=== PATIENT | female | born 1935 | race Caucasian/White ===

== ENCOUNTER 2017-07-18 08:14 | Emergency (ER) | payer MEDICARE ==
[2017-07-18] MEDS ORDERED: SODIUM CHLORIDE 0.9% 1,000 ML IV STA (08:29)
--- NOTE | 2017-07-18 08:32 | ED ---
General Adult HPI - General Chief complaint: Weakness Stated complaint: WEAKNESS Time Seen by Provider: 07/18/17 08:21 Source: patient, family, RN notes reviewed Mode of arrival: wheelchair Limitations: no limitations - History of Present Illness Initial comments: Patient is a pleasant 82-year-old female presenting to the emergency department with fatigue and general weakness. Symptoms started a couple of days ago. Patient feels somewhat weak all over. Patient is still able to ambulate and perform her activities of daily living. No isolated area of weakness. No confusion. No speech problems. No fever. No cough. No pain. No dysuria. - Related Data Home Medications Medication Instructions Recorded Confirmed Benazepril [Lotensin] 10 mg PO DAILY 07/18/17 07/18/17 Calcium Carbonate [Tums] 500 mg PO QID PRN 07/18/17 07/18/17 Levothyroxine Sodium [Synthroid] 75 mcg PO [id number] 07/18/17 07/18/17 Levothyroxine Sodium [Synthroid] 112.5 mcg PO MOTH 07/18/17 07/18/17 Lovastatin [Mevacor] 20 mg PO HS 07/18/17 07/18/17 Mag Hydrox/Al Hydrox/Simeth 30 ml PO QID PRN 07/18/17 07/18/17 [Maalox] Multivitamins, Thera [Multivitamin 1 tab PO DAILY 07/18/17 07/18/17 (formulary)] Oxybutynin Chloride 5 mg PO TID 07/18/17 07/18/17 Tiotropium 18 Mcg/Puff [Spiriva] 1 cap INHALATION RT-DAILY 07/18/17 07/18/17 Previous Rx's Medication Instructions Recorded Sulfamethox-Tmp 800-160Mg [Bactrim 1 each PO Q12HR #20 tab 07/18/17 DS 800-160 mg] Allergies Allergy/AdvReac Type Severity Reaction Status Date / Time No Known Allergies Allergy Verified 07/18/17 09:33 Review of Systems ROS Statement: Those systems with pertinent positive or pertinent negative responses have been documented in the HPI. ROS Other: All systems not noted in ROS Statement are negative. Constitutional: Denies: fever Eyes: Denies: eye pain ENT: Denies: ear pain Respiratory: Denies: cough, dyspnea Cardiovascular: Denies: chest pain Endocrine: Reports: fatigue Gastrointestinal: Denies: abdominal pain Genitourinary: Reports: frequency (chronic and unchanged). Denies: dysuria Musculoskeletal: Denies: back pain Skin: Denies: rash Neurological: Reports: weakness (generalized). Denies: headache, paresthesias, confusion, abnormal gait Past Medical History Past Medical History: Hyperlipidemia, Hypertension, Thyroid Disorder History of Any Multi-Drug Resistant Organisms: None Reported Past Surgical History: Adenoidectomy, Appendectomy, Cholecystectomy, Hysterectomy, Tonsillectomy Additional Past Surgical History / Comment(s): carpel tunnel hemmorroidectomy Past Psychological History: No Psychological Hx Reported Smoking Status: Former smoker Past Alcohol Use History: None Reported Past Drug Use History: None Reported General Exam Limitations: no limitations General appearance: alert, in no apparent distress Head exam: Present: atraumatic Eye exam: Present: normal appearance, PERRL, EOMI. Absent: nystagmus ENT exam: Present: normal oropharynx Neck exam: Present: normal inspection Respiratory exam: Present: normal lung sounds bilaterally Cardiovascular Exam: Present: regular rate, normal rhythm GI/Abdominal exam: Present: soft. Absent: tenderness Extremities exam: Present: normal inspection Neurological exam: Present: alert, oriented X3, CN II-XII intact. Absent: motor sensory deficit Expanded Patient oriented to: Present: person, place, time Speech: Present: fluid speech Cranial nerves: EOM's Intact: Normal, Facial Sensation: Normal Sensory exam: Upper Extremity Light Touch: Normal, Lower Extremity Light Touch: Normal Motor strength exam: RUE: 5, LUE: 5, RLE: 5, LLE: 5 Eye Response: (4) open spontaneously Motor Response: (6) obeys commands Verbal Response: (5) oriented Psychiatric exam: Present: normal affect, normal mood Skin exam: Present: normal color Course Vital Signs 07/18/17 07/18/17 07/18/17 08:24 08:47 09:19 Temperature 98.0 F Pulse Rate 101 H 91 96 Respiratory 18 18 18 Rate Blood Pressure 163/119 185/102 183/92 O2 Sat by Pulse 96 94 L 96 Oximetry EKG Findings - EKG Comments: EKG Findings:: normal sinus rhythm 94. HI 148. QRS 140. QTc 400. QTc 500. Lef Septal Q waves. nonspecific ST-T. Medical Decision Making - Medical Decision Making Patient reexamined and resting comfortably in bed. Patient is comfortable with discharge. Patient and family updated on results and need for follow-up. - Lab Data Result diagrams: 07/18/17 08:30 07/18/17 08:30 Lab Results 07/18/17 07/18/17 07/18/17 Range/Units 08:30 08:30 08:30 WBC 4.1 (3.8-10.6) k/uL RBC 4.38 (3.80-5.40) m/uL Hgb 13.4 (11.4-16.0) gm/dL Hct 41.8 (34.0-46.0) % MCV 95.5 (80.0-100.0) fL MCH 30.6 (25.0-35.0) pg MCHC 32.0 (31.0-37.0) g/dL RDW 14.2 (11.5-15.5) % Plt Count 139 L (150-450) k/uL Neutrophils % 55 % Lymphocytes % 28 % Monocytes % 10 % Eosinophils % 3 % Basophils % 1 % Neutrophils # 2.3 (1.3-7.7) k/uL Lymphocytes # 1.2 (1.0-4.8) k/uL Monocytes # 0.4 (0-1.0) k/uL Eosinophils # 0.1 (0-0.7) k/uL Basophils # 0.0 (0-0.2) k/uL PT (9.0-12.0) sec INR (<1.2) APTT (22.0-30.0) sec Sodium 131 L (137-145) mmol/L Potassium 4.2 (3.5-5.1) mmol/L Chloride 98 (98-107) mmol/L Carbon Dioxide 23 (22-30) mmol/L Anion Gap 10 mmol/L BUN 9 (7-17) mg/dL Creatinine 0.70 (0.52-1.04) mg/dL Est GFR (MDRD) Af Amer >60 (>60 ml/min/1.73 sqM) Est GFR (MDRD) Non-Af >60 (>60 ml/min/1.73 sqM) Glucose 116 H (74-99) mg/dL Calcium 9.4 (8.4-10.2) mg/dL Phosphorus 3.5 (2.5-4.5) mg/dL Magnesium 1.8 (1.6-2.3) mg/dL Total Bilirubin 0.4 (0.2-1.3) mg/dL AST 30 (14-36) U/L ALT 35 (9-52) U/L Alkaline Phosphatase 76 (38-126) U/L Total Creatine Kinase 38 (30-135) U/L CK-MB (CK-2) 1.8 (0.0-2.4) ng/mL CK-MB (CK-2) Rel Index 4.7 Troponin I 0.014 (0.000-0.034) ng/mL Total Protein 7.3 (6.3-8.2) g/dL Albumin 4.0 (3.5-5.0) g/dL TSH 7.410 H (0.465-4.680) mIU/L Free T4 1.30 (0.78-2.19) ng/dL Free T3 pg/mL 2.8 (2.8-5.3) pg/ml Urine Color Urine Appearance (Clear) Urine pH (5.0-8.0) Ur Specific [place] (1.001-1.035) Urine Protein (Negative) Urine Glucose (UA) (Negative) Urine Ketones (Negative) Urine Blood (Negative) Urine Nitrite (Negative) Urine Bilirubin (Negative) Urine Urobilinogen (<2.0) mg/dL Ur Leukocyte Esterase (Negative) Urine RBC (0-5) /hpf Urine WBC (0-5) /hpf Urine Bacteria (None) /hpf 07/18/17 07/18/17 Range/Units 08:30 09:15 WBC (3.8-10.6) k/uL RBC (3.80-5.40) m/uL Hgb (11.4-16.0) gm/dL Hct (34.0-46.0) % MCV (80.0-100.0) fL MCH (25.0-35.0) pg MCHC (31.0-37.0) g/dL RDW (11.5-15.5) % Plt Count (150-450) k/uL Neutrophils % % Lymphocytes % % Monocytes % % Eosinophils % % Basophils % % Neutrophils # (1.3-7.7) k/uL Lymphocytes # (1.0-4.8) k/uL Monocytes # (0-1.0) k/uL Eosinophils # (0-0.7) k/uL Basophils # (0-0.2) k/uL PT 10.5 (9.0-12.0) sec INR 1.0 (<1.2) APTT 26.5 (22.0-30.0) sec Sodium (137-145) mmol/L Potassium (3.5-5.1) mmol/L Chloride (98-107) mmol/L Carbon Dioxide (22-30) mmol/L Anion Gap mmol/L BUN (7-17) mg/dL Creatinine (0.52-1.04) mg/dL Est GFR (MDRD) Af Amer (>60 ml/min/1.73 sqM) Est GFR (MDRD) Non-Af (>60 ml/min/1.73 sqM) Glucose (74-99) mg/dL Calcium (8.4-10.2) mg/dL Phosphorus (2.5-4.5) mg/dL Magnesium (1.6-2.3) mg/dL Total Bilirubin (0.2-1.3) mg/dL AST (14-36) U/L ALT (9-52) U/L Alkaline Phosphatase (38-126) U/L Total Creatine Kinase (30-135) U/L CK-MB (CK-2) (0.0-2.4) ng/mL CK-MB (CK-2) Rel Index Troponin I (0.000-0.034) ng/mL Total Protein (6.3-8.2) g/dL Albumin (3.5-5.0) g/dL TSH (0.465-4.680) mIU/L Free T4 (0.78-2.19) ng/dL Free T3 pg/mL (2.8-5.3) pg/ml Urine Color Colorless Urine Appearance Clear (Clear) Urine pH 7.5 (5.0-8.0) Ur Specific [place] 1.002 (1.001-1.035) Urine Protein Negative (Negative) Urine Glucose (UA) Negative (Negative) Urine Ketones Negative (Negative) Urine Blood Negative (Negative) Urine Nitrite Positive H (Negative) Urine Bilirubin Negative (Negative) Urine Urobilinogen <2.0 (<2.0) mg/dL Ur Leukocyte Esterase Large H (Negative) Urine RBC 1 (0-5) /hpf Urine WBC 29 H (0-5) /hpf Urine Bacteria Rare H (None) /hpf - Radiology Data Radiology results: report reviewed (Computed tomography scan of the brain reveals no acute intercranial abnormality.), image reviewed (Chest x-ray shows mild cardiomegaly, COPD.) Disposition Clinical Impression: Urinary tract infection Disposition: HOME SELF-CARE Condition: Stable Instructions: Urinary Tract Infection in Women (ED) Additional Instructions: Please follow-up with your primary care physician in the beginning of the week. Return for increased weakness, change in mental status, fevers, worsening symptoms or other concerns. Prescriptions: Sulfamethox-Tmp 800-160Mg [Bactrim DS 800-160 mg] 1 each PO Q12HR #20 tab Referrals: Jeremy Vidal MD [Primary Care Provider] - 1-2 days Time of Disposition: 10:46
[2017-07-18 08:56] LABS: Partial Thromboplastin Time 26.5 sec (22.0-30.0); Prothrombin Time 10.5 sec (9.0-12.0)
[2017-07-18 08:58] LABS: ALT 35 U/L (9-52); AST 30 U/L (14-36); Alkaline Phosphatase 76 U/L (38-126); Anion Gap 10 mmol/L; Blood Urea Nitrogen 9 mg/dL (7-17); Calcium 9.4 mg/dL (8.4-10.2); Carbon Dioxide 23 mmol/L (22-30); Chloride 98 mmol/L (98-107); Glucose 116 mg/dL (74-99); Magnesium 1.8 mg/dL (1.6-2.3); Non-African American GFR(MDRD) >60 (>60 ml/min/1.73 sqM); Phosphorous 3.5 mg/dL (2.5-4.5); Potassium 4.2 mmol/L (3.5-5.1); Sodium 131 mmol/L (137-145); Total Bilirubin 0.4 mg/dL (0.2-1.3); Total Protein 7.3 g/dL (6.3-8.2)
[2017-07-18 09:06] LABS: Basophils % (A) 1 %; CH 31.5; CHCM 33.2; Eosinophils # (A) 0.1 k/uL (0-0.7); Eosinophils % (A) 3 %; HCT 41.8 % (34.0-46.0); HDW 2.46; HGB 13.4 gm/dL (11.4-16.0); Luc # (Auto) 0.13; Luc % (Auto) 3; Lymphocytes # (A) 1.2 k/uL (1.0-4.8); Lymphocytes % (A) 28 %; MCH 30.6 pg (25.0-35.0); MCV 95.5 fL (80.0-100.0); Mean Platelet Volume 8.2; Monocytes # (A) 0.4 k/uL (0-1.0); Monocytes % (A) 10 %; Neutrophils # (A) 2.3 k/uL (1.3-7.7); Neutrophils % (A) 55 %; RBC 4.38 m/uL (3.80-5.40); RDW 14.2 % (11.5-15.5); WBC 4.1 k/uL (3.8-10.6); WBC (Perox) 3.83
--- NOTE | 2017-07-18 09:07 | XR ---
EXAMINATION TYPE: XR chest 2V DATE OF EXAM: 07/18/2017 HISTORY: Weakness. REFERENCE: 3 dated 08/23/2012. FINDINGS: The lungs are overinflated. The heart is mildly enlarged. The lungs are clear. Pleural spac es are clear. IMPRESSION: 1. COPD. 2. MILD CARDIOMEGALY.
[2017-07-18 09:19] LABS: Creatine Kinase MB 1.8 ng/mL (0.0-2.4); Troponin I 0.014 ng/mL (0.000-0.034)
[2017-07-18 09:26] LABS: Appearance,Urine Clear (Clear); Bacteria,Urine Rare /hpf; Bilirubin,Urine Negative (Negative); Glucose,Urine (UA) Negative (Negative); Ketones,Urine Negative (Negative); Leukocyte Esterase,Urine Large (Negative); Nitrite,Urine Positive (Negative); PH, Urine 7.5 (5.0-8.0); Particle Count 9162; Protein,Urine Negative (Negative); RBC,Urine 1 /hpf (0-5); Specific Gravity,Urine 1.002 (1.001-1.035); UA Billing (MACRO vs. MICRO) MICRO; Urobilinogen,Urine <2.0 mg/dL (<2.0); WBC,Urine 29 /hpf (0-5)
--- NOTE | 2017-07-18 10:09 | CT ---
EXAMINATION TYPE: CT brain wo con DATE OF EXAM: 07/18/2017 COMPARISON: NONE HISTORY: Dizziness CT DLP: 1054.2 mGycm Automated exposure control for dose reduction was used. FINDINGS: There are generalized changes of sulcal prominence and ventriculomegaly, compatible with mild atrophy . There is diffuse periventricular white matter lucency, compatible with chronic white matter ischemi c change. There is no acute focal lesion, mass effect or midline shift identified. I do not see evide nce of intracranial blood. There is some mucosal thickening involving the left sphenoid sinus. The mastoid air cells are clear. Limited views through the middle and inner ear structures demonstrate no definite abnormality. IMPRESSION: 1. NO ACUTE INTRACRANIAL ABNORMALITY. 2. MILD ATROPHIC CHANGE. 3. CHRONIC WHITE MATTER ISCHEMIC CHANGE. 4. 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
[2017-07-18] MEDS ORDERED: LISINOPRIL 10 MG TAB PO STA (10:43)
[2017-07-18] MEDS ORDERED: SULFAMETHOX-TMP 800-160MG 1 EACH TAB PO STA (10:44)
[2017-07-18 11:05] VITALS: BP 152/91; PULSE 90; RESP 16; TEMP 97.6
== END 2017-07-18 11:28 | disposition home or self-care (01) ==
LOC: EC 08:14
DX: N39.0 Urinary tract infection, site not specified (principal); R53.1 Weakness; R53.83 Other fatigue; E78.5 Hyperlipidemia, unspecified; I10 Essential (primary) hypertension; E07.9 Disorder of thyroid, unspecified; Z87.891 Personal history of nicotine dependence; Z79.899 Other long term (current) drug therapy; Z53.20 Procedure and treatment not carried out because of patient's decision for unspecified reasons
CPT/HCPCS: 36415; 70450; 71020; 80053; 81001; 82550; 82553; 83735; 84100; 84439; 84443; 84481; 84484; 85025; 85610; 85730; 87086; 93005; 99285

== ENCOUNTER → 2019-04-24 | Outpatient (CLI) | payer MEDICARE ==
--- NOTE | 2019-04-24 15:39 | US ---
EXAMINATION TYPE: US carotid duplex BILAT DATE OF EXAM: 04/24/2019 COMPARISON: NONE CLINICAL HISTORY: I65.29 Carotid Stenosis. Stenosis EXAM MEASUREMENTS: RIGHT: Peak Systolic Velocity (PSV) cm/sec ----- Right CCA: 50.7 ----- Right ICA: 122.8 ----- Right ECA: 72.2 ICA/CCA ratio: 2.4 RIGHT: End Diastole cm/sec ----- Right CCA: 10.4 ----- Right ICA: 34.4 ----- Right ECA: 0.0 LEFT: Peak Systolic Velocity (PSV) cm/sec ----- Left CCA: 100.4 ----- Left ICA: 124.0 ----- Left ECA: 122.2 ICA/CCA ratio: 1.2 LEFT: End Diastole cm/sec ----- Left CCA: 13.7 ----- Left ICA: 19.2 ----- Left ECA: 0.0 VERTEBRALS (direction of flow): Right Vertebral: Antegrade Left Vertebral: Antegrade Rhythm: Normal IMPRESSION: Bilateral intimal thickening, plaque bilateral bulb, torturous left ICA, right ICA/CCA ra toro 2.4 Criteria for Assigning % of Stenosis / Diameter reduction (Estimation based on the indirect measurements of the internal carotid artery velocities (ICA PSV). 1. Normal (no stenosis)=ICA PSV < 125 cm/s: ratio < 2.0: ICA EDV<40 cm/s. 2. Less than 50% stenosis=ICA PSV < 125 cm/s: ratio < 2.0: ICA EDV<40 cm/s. 3. 50 to 69% stenosis=ICA PSV of 125 to 230 cm/s: ration 2.0 ? 4.0: ICA EDV 40-100 cm/s. 4. Greater than 70% stenosis to near occlusion= ICA PSV > 230 cm/s: ratio > 4.0: ICA EDV > 100 cm/s. 5. Near occlusion= ICA PSV velocities may be low or undetectable: variable ratio and ICA EDV. 6. Total occlusion=unable to detect flow.
== END | disposition home or self-care (01) ==
LOC: RADUSWWP 14:53
PROVIDERS: ATTEND Internal Medicine
DX: I65.23 Occlusion and stenosis of bilateral carotid arteries (principal)
CPT/HCPCS: 93880

== ENCOUNTER → 2020-07-08 | Outpatient (CLI) | payer MEDICARE ==
[~2020-07-08] MED LIST: DOBUTamine DRIP for NUC MED 500 MG in DEXTROSE/WATER 1 250ML.BAG IV ONE
--- NOTE | 2020-07-08 10:32 | US ---
EXAMINATION TYPE: US carotid duplex BILAT DATE OF EXAM: 07/08/2020 COMPARISON: 04/24/2019 CLINICAL HISTORY: I65.2 occlusion and stenosis carotid artery. EXAM MEASUREMENTS: RIGHT: Peak Systolic Velocity (PSV) cm/sec ----- Right CCA: 93.8 ----- Right ICA: 101. ----- Right ECA: 90.4 ICA/CCA ratio: 1.08 RIGHT: End Diastole cm/sec ----- Right CCA: 14.0 ----- Right ICA: 37.4 ----- Right ECA: 4.1 LEFT: Peak Systolic Velocity (PSV) cm/sec ----- Left CCA: 114. ----- Left ICA: 189. ----- Left ECA: 182. ICA/CCA ratio: 1.65 LEFT: End Diastole cm/sec ----- Left CCA: 13.7 ----- Left ICA: 48.0 ----- Left ECA: 8.2 VERTEBRALS (direction of flow): Right Vertebral: Antegrade Left Vertebral: Antegrade Rhythm: Normal Moderate atherosclerotic changes with mild velocity increase on left. IMPRESSION: 1. Moderate atherosclerotic disease with no significant hemodynamic stenosis as visualized. Criteria for Assigning % of Stenosis / Diameter reduction (Estimation based on the indirect measurements of the internal carotid artery velocities (ICA PSV). 1. Normal (no stenosis)=ICA PSV < 125 cm/s: ratio < 2.0: ICA EDV<40 cm/s. 2. Less than 50% stenosis=ICA PSV < 125 cm/s: ratio < 2.0: ICA EDV<40 cm/s. 3. 50 to 69% stenosis=ICA PSV of 125 to 230 cm/s: ration 2.0 ? 4.0: ICA EDV 40-100 cm/s. 4. Greater than 70% stenosis to near occlusion= ICA PSV > 230 cm/s: ratio > 4.0: ICA EDV > 100 cm/s. 5. Near occlusion= ICA PSV velocities may be low or undetectable: variable ratio and ICA EDV. 6. Total occlusion=unable to detect flow.
--- NOTE | 2020-07-08 12:17 | ECHOF ---
Referral Reason:R06.02 SOB MEASUREMENTS -------- HEIGHT: 167.6 cm WEIGHT: 64.9 kg BP: RVIDd: 3.2 cm (< 3.3) IVSd: 1.3 cm (0.6 - 1.1) LVIDd: 3.8 cm (3.9 - 5.3) LVPWd: 1.4 cm (0.6 - 1.1) IVSs: 1.2 cm LVIDs: 3.5 cm LVPWs: 2.0 cm LAESV Index (A-L): 26.06 ml/m Ao Diam: 3.0 cm (2.0 - 3.7) AV Cusp: 1.3 cm (1.5 - 2.6) MV E Audie: 0.45 m/s MV DecT: 154 ms MV A Audie: 1.01 m/s MV E/A Ratio: 0.45 AR PHT: 483 ms RAP: 5.00 mmHg RVSP: 17.24 mmHg FINDINGS -------- This was a technically adequate study. The left ventricular size is normal. There is mild concentric left ventricular hypertrophy. There is severe global hypokinesis of LV . Overall left ventricular systolic function is severely impair ed with, an EF < 20%. Mitral Doppler inflow pattern suggests diastolic filling abnormality {E/E'}. The right ventricle is normal in size. Normal LA size by volume 22+/-6 ml/m2. The right atrial size is normal. Interatrial and interventricular septum intact. The aortic valve is trileaflet and appears structurally normal. There is mild aortic valve sclerosi s. There is moderate aortic regurgitation. There is no evidence of aortic stenosis. An echodens ity was attached to the AV, vegetation to be ruled out, KEITH is advised. Mild mitral annular calcification present. Moderate mitral regurgitation is present. Mild tricuspid regurgitation present. There is no evidence of pulmonary hypertension. The right v entricular systolic pressure, as measured by Doppler, is 17.24mmHg. There is no pulmonic regurgitation present. The aortic root size is normal. Normal inferior vena cava with normal inspiratory collapse consistent with estimated right atrial pre ssure of 5 mmHg. There is no pericardial effusion. CONCLUSIONS -------- 1. The left ventricular size is normal. 2. There is mild concentric left ventricular hypertrophy. 3. There is severe global hypokinesis of LV . 4. Overall left ventricular systolic function is severely impaired with, an EF < 20%. 5. Mitral Doppler inflow pattern suggest diastolic filling abnormality {E/E'}. 6. There is mild aortic valve sclerosis. 7. There is moderate aortic regurgitation. 8. An echodensity was attached to the AV, vegetation to be ruled out, KEITH is advised. 9. Mild mitral annular calcification present. 10. Moderate mitral regurgitation is present. 11. Mild tricuspid regurgitation present. SENIOR SOFTWARE MANAGER: Gisell Cueva RDCS
== END | disposition home or self-care (01) ==
LOC: RADUSMAIN 08:37
PROVIDERS: ATTEND Internal Medicine
DX: I65.23 Occlusion and stenosis of bilateral carotid arteries (principal); I08.3 Combined rheumatic disorders of mitral, aortic and tricuspid valves; I50.1 Left ventricular failure, unspecified
CPT/HCPCS: 93306; 93880; J1250

== ENCOUNTER 2021-02-28 08:50 | Day surgery (SDC) | payer MEDICARE ==
[2021-02-27 09:43] VITALS: BMI 23.2
[~2021-02-28 08:50] MED LIST changes: -DOBUTamine DRIP for NUC MED 500 MG in DEXTROSE/WATER 1 250ML.BAG IV ONE; +LACTATED RINGERS 1,000 ML IV SCH; +LIDOCAINE 1% (10MG/ML) FOR IV START INTRADERMA PRN
[2021-02-28 09:37] VITALS: RESP 18; TEMP 98.4
[2021-02-28] MEDS ORDERED: LIDOCAINE 1% INJ 10MG/ML (20 ML MDV) ONE (10:17)
[2021-02-28] MEDS ORDERED: PROPOFOL 10 MG/ML 20 ML VIAL IV ONE (10:17)
--- NOTE | 2021-02-28 10:37 | P.PCN ---
Date of Procedure: 02/28/21 Implants: BRIEF HISTORY: Patient is a 86-year-old, pleasant, white female scheduled for an upper endoscopy as a part of evaluation of intermittent black stools for the last several months duration.. PROCEDURE PERFORMED: Esophagogastroduodenoscopy with cautery using a gold probe. PREOPERATIVE DIAGNOSIS: Intermittent melena for the last several months duration. IV sedation per anesthesia. PROCEDURE: After informed consent was obtained, the patient was brought into the endoscopy unit. IV sedation was administered by Anesthesia under continuous monitoring. Initially the Olympus GIF-140 video endoscope was inserted into the mouth. Esophagus intubated without any difficulty. It was gradually advanced into the stomach and duodenum and carefully examined. The bulb and the second part of the duodenum appeared normal. The scope at this time was withdrawn to the stomach, adequately insufflated with air, and upon careful examination, mucosa of the antrum, had mild gastritis and biopsies were done from this area. In the gastric body there were 3 small actively oozing gastric AVMs noted which were all cauterized using a gold probe with good hemostasis. The rest of the body, cardia and the fundus appeared normal. The scope was then withdrawn into the esophagus. The GE junction was located at 39 cm from the incisors. The esophagus appeared normal. There were no erosions or ulcerations seen and the patient tolerated the procedure well. IMPRESSION: 1. 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 2. Mild antral gastritis. RECOMMENDATIONS: The findings of this examination were discussed with the patient as well as a family. She was advised to follow with the biopsy results. Monitor hemoglobin periodically. Use iron supplements if anemic. Follow up in office in 3 months.
[2021-02-28 10:42] VITALS: PULSE 63
[2021-02-28 10:53] VITALS: BP 138/66
== END 2021-02-28 11:22 | disposition home or self-care (01) ==
LOC: ORWHC2ENDO 08:50
PROVIDERS: ATTEND Internal Medicine Gastroenterology
DX: K92.1 Melena (principal); K29.50 Unspecified chronic gastritis without bleeding; Q27.8 Other specified congenital malformations of peripheral vascular system; Z79.899 Other long term (current) drug therapy; E78.5 Hyperlipidemia, unspecified; I10 Essential (primary) hypertension; J44.9 Chronic obstructive pulmonary disease, unspecified; E07.9 Disorder of thyroid, unspecified
CPT/HCPCS: 88305; 43239; 43270; J2001; J2704

== ENCOUNTER → 2021-03-24 | Outpatient (CLI) | payer MEDICARE ==
--- NOTE | 2021-03-24 15:53 | XR ---
EXAMINATION TYPE: XR chest 2V DATE OF EXAM: 03/24/2021 COMPARISON: 07/18/2027 HISTORY: Dyspnea TECHNIQUE: Frontal and lateral views of the chest are obtained. FINDINGS: The lungs are hyperinflated with prominence of the interstitium, unchanged. Cardiac silhouette is unchanged. IMPRESSION: No acute cardiopulmonary process.
== END | disposition home or self-care (01) ==
LOC: RADXRMAIN 15:34
PROVIDERS: ATTEND Internal Medicine
DX: R06.00 Dyspnea, unspecified (principal)
CPT/HCPCS: 71046

== ENCOUNTER → 2021-04-21 | Outpatient (CLI) | payer MEDICARE ==
--- NOTE | 2021-04-21 17:43 | ECHOF ---
Referral Reason:R06.00 dyspnea MEASUREMENTS -------- HEIGHT: 170.2 cm WEIGHT: 67.6 kg BP: IVSd: 1.1 cm (0.6 - 1.1) LVIDd: 3.9 cm (3.9 - 5.3) LVPWd: 1.3 cm (0.6 - 1.1) IVSs: 1.7 cm LVIDs: 2.5 cm LVPWs: 2.0 cm Ao Diam: 3.3 cm (2.0 - 3.7) AV Cusp: 2.0 cm (1.5 - 2.6) LA Diam: 2.3 cm (2.7 - 3.8) MV EXCURSION: 10.933 mm (> 18.000) MV EF SLOPE: 51 mm/s (70 - 150) EPSS: 0.7 cm MV E Audie: 0.68 m/s MV DecT: 268 ms MV A Audie: 0.83 m/s MV E/A Ratio: 0.82 AR PHT: 1701 ms RAP: 5.00 mmHg RVSP: 10.17 mmHg FINDINGS -------- This was a technically adequate study. The left ventricular size is normal. There is mild concentric left ventricular hypertrophy. Overa ll left ventricular systolic function is low-normal with, an EF between 50 - 55 %. The right ventricle is normal in size. The left atrial size is normal. The right atrial size is normal. Aortic valve is trileaflet and is mildly thickened. There is mild aortic regurgitation. The mitral valve is normal. The mitral valve leaflets are mildly thickened. Mild mitral regurgita tion is present. The tricuspid valve appears structurally normal. Mild tricuspid regurgitation present. Right vent ricular systolic pressure is normal at < 35 mmHg. There is no pulmonic regurgitation present. The aortic root size is normal. Normal inferior vena cava with normal inspiratory collapse consistent with estimated right atrial pre ssure of 5 mmHg. There is no pericardial effusion. CONCLUSIONS -------- 1. The left ventricular size is normal. 2. There is mild concentric left ventricular hypertrophy. 3. Overall left ventricular systolic function is low-normal with, an EF between 50 - 55 %. 4. Aortic valve is trileaflet and is mildly thickened. 5. There is mild aortic regurgitation. 6. The mitral valve leaflets are mildly thickened. 7. Mild mitral regurgitation is present. 8. Mild tricuspid regurgitation present. 9. There is no pericardial effusion. CLOTH SHRINKING SUPERVISOR: Lala Lopez RDCS
== END | disposition home or self-care (01) ==
LOC: RADECHMAIN 13:49
PROVIDERS: ATTEND Internal Medicine
DX: I08.3 Combined rheumatic disorders of mitral, aortic and tricuspid valves (principal)
CPT/HCPCS: 93306

== ENCOUNTER → 2021-09-30 | Outpatient (CLI) | payer MEDICARE ==
--- NOTE | 2021-09-30 16:07 | XR ---
EXAMINATION TYPE: XR shoulder complete RT DATE OF EXAM: 09/30/2021 CLINICAL HISTORY: pain TECHNIQUE: Three views of the right shoulder are obtained. COMPARISON: None FINDINGS: There is no acute fracture/dislocation evident. The acromioclavicular and glenohumeral yaritza int spaces appear within normal limits. The visualized ribs are intact and unremarkable. IMPRESSION: 1. There is no acute fracture or dislocation. ICD 10 NO FRACTURE, INITIAL EVALUATION
== END | disposition home or self-care (01) ==
LOC: RADXRMAIN 15:43
PROVIDERS: ATTEND Internal Medicine
DX: M25.511 Pain in right shoulder (principal)

== ENCOUNTER → 2021-10-21 | Outpatient (CLI) | payer MEDICARE ==
--- NOTE | 2021-10-22 10:22 | P.ARTDOP ---
Arterial Doppler LOWER EXTREMITY ARTERIAL DOPPLER: DATE OF SERVICE: 10/21/2021 Reason for study: Bilateral leg swelling. Doppler waveforms: Multiphasic bilaterally throughout with mildly blunted waveforms digitally on the right. Pulse volume recording: []. Pressure gradients: Mild gradient at the ankle level Ankle-brachial indices: 0.93 on the right and 0.88 on the left. Toe brachial indices: 0.7 on the right, 0.6 on the left Impression: Possible mild bilateral SFA disease. Does not correlate to account for symptoms..
== END | disposition home or self-care (01) ==
LOC: RADUSWWP 12:43
PROVIDERS: ATTEND Internal Medicine
DX: I99.8 Other disorder of circulatory system (principal); M79.89 Other specified soft tissue disorders
CPT/HCPCS: 93922

== ENCOUNTER → 2022-04-28 | Outpatient (CLI) | payer MEDICARE ==
--- NOTE | 2022-04-28 15:33 | XR ---
EXAM TYPE: LUMBAR SPINE X RAY SERIES COMPARISON: NONE HISTORY: Pain TECHNIQUE: 4 views are submitted. FINDINGS: Alignment is anatomic. The pedicles are intact. The transverse processes are intact. There is hype rtrophic and degenerative changes spine with diffuse osteopenia. Arthropathy of the SI joints. Surgic al clips in the abdomen. Multilevel facet arthropathy. Grade 1 anterolisthesis L3 on L4 and L4 on L5. IMPRESSION: 1. Multilevel of moderate to severe degenerative disc disease and facet arthropathy with grade 1 ante rolisthesis L3 on 4 and L4 on L5. Suspect bilateral foraminal encroachment is levels recommend follow -up MRI.
== END | disposition home or self-care (01) ==
LOC: RADXRMAIN 14:58
PROVIDERS: ATTEND Family Medicine
DX: W19.XXXA Unspecified fall, initial encounter (principal); E88.89 Other specified metabolic disorders; M51.26 Other intervertebral disc displacement, lumbar region; M47.816 Spondylosis without myelopathy or radiculopathy, lumbar region
CPT/HCPCS: 72110

== ENCOUNTER → 2022-07-13 | Outpatient (CLI) | payer MEDICARE ==
[2022-07-13 10:37] LABS: Basophils # (A) 0.03 X 10*3/uL (0.00-0.10); Basophils % (A) 0.8 %; Eosinophils # (A) 0.13 X 10*3/uL (0.04-0.35); Eosinophils % (A) 3.3 %; HCT 39.6 % (37.2-46.3); HGB 12.9 g/dL (12.0-15.0); Immature Grans, Automated 0 %; Lymphocytes # (A) 1.34 X 10*3/uL (0.90-5.00); Lymphocytes % (A) 33.9 %; MCH 30.5 pg (27.0-32.0); MCHC 32.6 g/dL (32.0-37.0); MCV 93.6 fL (80.0-97.0); Mean Platelet Volume 10.4 fL (9.5-12.2); Monocytes # (A) 0.78 X 10*3/uL (0.20-1.00); Monocytes % (A) 19.7 %; NRBC Per 100 WBC 0 /100 WBCS (0.0-0.0); Neutrophils # (A) 1.67 X 10*3/uL (1.80-7.70); Neutrophils % (A) 42.3 %; Platelet Count 183 X 10*3/uL (140-440); RBC 4.23 X 10*6/uL (4.10-5.20); RDW 12.8 % (11.5-14.5); WBC 3.95 X 10*3/uL (4.50-10.00)
[2022-07-13 11:00] LABS: ALT 17 U/L (8-44); AST 22 U/L (13-35); African American GFR (CKD) 76.8 (60.0-200.0); Albumin 4.2 g/dL (3.8-4.9); Albumin/Globulin Ratio 1.35 (1.60-3.17); Alkaline Phosphatase 80 U/L (41-126); Blood Urea Nitrogen 18.4 mg/dL (9.0-27.0); Calcium 9.4 mg/dL (8.7-10.3); Carbon Dioxide 28.8 mmol/L (20.0-27.5); Chloride 96 mmol/L (96-109); Chol/HDL Ratio 1.76 Ratio; Globulin 3.1 g/dL (1.6-3.3); Glucose 96 mg/dL (70-110); LDL Cholesterol,Calculated 48.8 mg/dL (0.0-131.0); Non-African American GFR(CKD) 66.3 (60.0-200.0); Potassium 4.9 mmol/L (3.5-5.5); Sodium 132 mmol/L (135-145); Total Protein 7.3 g/dL (6.2-8.2); VLDL Calculation 11.98 mg/dL (5.00-40.00)
== END | disposition home or self-care (01) ==
LOC: LABWHC1 07:49
PROVIDERS: ATTEND Internal Medicine
DX: I10 Essential (primary) hypertension (principal); E03.9 Hypothyroidism, unspecified
CPT/HCPCS: 36415; 80053; 80061; 84439; 84443; 85025

== ENCOUNTER → 2022-07-13 | Outpatient (CLI) | payer MEDICARE ==
--- NOTE | 2022-07-13 08:39 | XR ---
EXAMINATION TYPE: XR shoulder complete RT DATE OF EXAM: 07/13/2022 COMPARISON: Right shoulder radiograph 09/22/2021. HISTORY: M25.511 R shoulder pain TECHNIQUE: The right shoulder was examined in AP, internally rotated and scapular Y projections. . FINDINGS: No evidence of acute osseous pathology, joint dislocation, or soft tissue swelling. No significant yaritza int spurring. The remaining portions of the visualized chest are unremarkable. IMPRESSION: No acute osseous pathology.
== END | disposition home or self-care (01) ==
LOC: RADXRMAIN 08:12
PROVIDERS: ATTEND Internal Medicine
DX: M25.511 Pain in right shoulder (principal)

== ENCOUNTER → 2022-09-09 | Outpatient (CLI) | payer MEDICARE ==
--- NOTE | 2022-09-09 11:27 | XR ---
EXAMINATION TYPE: XR chest 2V DATE OF EXAM: 09/09/2022 11:08 AM COMPARISON: Chest radiographs from 03/24/2021 TECHNIQUE: XR chest 2V . 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 No eviden ce of focal consolidation, pneumothorax or pleural effusion. Pulmonary vascularity: Unremarkable. Heart/mediastinum: Cardiomediastinal silhouette is unremarkable. Atherosclerotic calcifications are seen in the aorta. Musculoskeletal: No acute osseous pathology. IMPRESSION: Chronic changes without acute pulmonary process. No significant change from prior.
== END | disposition home or self-care (01) ==
LOC: RADXRMAIN 10:45
PROVIDERS: ATTEND Internal Medicine
DX: J98.4 Other disorders of lung (principal); E22.2 Syndrome of inappropriate secretion of antidiuretic hormone
CPT/HCPCS: 71046

== ENCOUNTER → 2023-03-22 | Outpatient (CLI) | payer MEDICARE ==
--- NOTE | 2023-03-22 14:04 | MM ---
Reason for Exam: Clinical finding. Last mammogram was performed 19 year(s) and 3 month(s) ago. Indicated Problems: Lump or thickening of the right side. Patient History: Menarche at age 12. Hysterectomy at age 38. Postmenopausal. Core Biopsy on the Right side. Core Biopsy on the Right side. Excisional Biopsy on the Left side. 11/13/1999, Benign Stereotactic Core Biopsy on the right side. Prior Study Comparison: 12/21/2002 Bilateral Screening Mammogram, [facility]. 12/24/2003 Bilateral Screening Mammogram, [facility]. Tissue Density: The breast tissue is heterogeneously dense. This may lower the sensitivity of mammography. Findings: Analyzed By CAD. Multiple asymmetries are seen within the right breast some of which may correlate palpable abnormality. Example includes anterior depth of 11mm and 14 mm lesions in the upper aspect on MLO view. A focal asymmetry posterior depth measuring 15 mm approximately 10 cm from the nipple on CC and MLO view is slightly lateral on CC view. Overall Assessment: Incomplete: need additional imaging evaluation, BI-RAD 0 Management: Diagnostic Breast Ultrasound of the right breast. Results were given to the patient verbally at the time of exam. Patient should continue monthly self-breast exams. A clinical breast exam by your physician is recommended on an annual basis. This exam should not preclude additional follow-up of suspicious palpable abnormalities. Note on Christen scores and lifetime risk: 1. A Christen score greater than 3% is considered moderate risk. If this is the case, consider specialist referral to assess eligibility for a risk reducing agent. 2. If overall lifetime risk for the development of breast cancer is 20% or higher, the patient may qualify for future screening with alternating mammogram and breast MRI. Electronically signed and approved by: Alex Khan DO
--- NOTE | 2023-03-22 14:41 | USB ---
Reason for Exam: Clinical finding. Patient History: Menarche at age 12. Hysterectomy at age 38. Postmenopausal. Core Biopsy on the Right side. Core Biopsy on the Right side. Excisional Biopsy on the Left side. 11/13/1999, Benign Stereotactic Core Biopsy on the right side. Technique: Method: Whole Breast Handheld. Prior Study Comparison: 11/21/2001 Bilateral Diagnostic Mammogram, [facility]. 12/21/2002 Bilateral Screening Mammogram, [facility]. 12/24/2003 Bilateral Screening Mammogram, [facility]. Findings: The whole breast of the right breast, the axilla of the right breast and the retroareolar of the right breast were scanned. Imaged: Ultrasound imaging of: All 4 quadrants, the retroareolar region and axilla. * 5:00 3 cm from nipple irregular tissue with ill-defined borders calcifications present. Shadowing limits evaluation of portions of this. This area measures at least 18 x 11 mm. This lesion may have a biopsy clip, however it looks suspicious. * 7:00 3 cm from nipple an area of palpable abnormality is a irregular shaped oval hypoechoic mass measuring at least 17 x 12 mm. * 1:00 2 cm from nipple 19 x 13 mm hypoechoic irregular shaped lesion.Imaged: Ultrasound imaging of: All 4 quadrants, the retroareolar region and axilla. * 5:00 3 cm from nipple irregular tissue with ill-defined borders calcifications present. Shadowing limits evaluation of portions of this. This area measures at least 18 x 11 mm. This lesion may have a biopsy clip, however it looks suspicious. * 7:00 3 cm from nipple an area of palpable abnormality is a irregular shaped oval hypoechoic mass measuring at least 17 x 12 mm. This lesion may have a biopsy clip, however it looks suspicious. 1:00 2 cm from nipple 19 x 13 mm hypoechoic irregular shaped lesion with some irregular contour to the margins. No lymphadenopathy visualized. Overall Assessment: Suspicious, BI-RAD 4 Management: Ultrasound Core Biopsy of the right breast. A clinical breast exam by your physician is recommended on an annual basis and results should be correlated with mammographic findings. This exam should not preclude additional follow-up of suspicious palpable abnormalities. Results were given to the patient verbally at the time of exam. Electronically signed and approved by: Alex Khan DO
== END | disposition home or self-care (01) ==
LOC: RADMAMWWP 13:08
PROVIDERS: ATTEND Internal Medicine
DX: N63.13 Unspecified lump in the right breast, lower outer quadrant (principal); Z78.0 Asymptomatic menopausal state
CPT/HCPCS: 77066; 76641; G0279; 77062

== ENCOUNTER → 2023-03-31 | Outpatient (CLI) | payer MEDICARE ==
--- NOTE | 2023-03-31 14:53 | US ---
EXAMINATION TYPE: US liver DATE OF EXAM: 03/31/2023 COMPARISON: NONE CLINICAL INDICATION: Female, 88 years old with history of elevated LFTs R74.01; elevated lft's TECHNIQUE: Multiple sonographic images of the right upper quadrant are obtained. FINDINGS: EXAM MEASUREMENTS: Liver Length: 14.4 cm Gallbladder Wall: Surgically absent CBD: 0.8 cm Right Kidney: 10.1 x 4.2 x 4.1 cm Pancreas: wnl Liver: lateral left lobe complex lesion seen, non vascular =1.3 x 1.2 x 1.3cm Gallbladder: Surgically absent Evidence for sonographic Crawley's sign: no CBD: wnl Right Kidney: wnl IMPRESSION: Indeterminate hepatic lesions this can be further characterized with MRI liver mass protocol.
== END | disposition home or self-care (01) ==
LOC: RADUSWWP 10:10
PROVIDERS: ATTEND Internal Medicine
DX: R74.01 Elevation of levels of liver transaminase levels (principal)
CPT/HCPCS: 76705

== ENCOUNTER → 2023-03-31 | Day surgery (SDC) | payer MEDICARE ==
--- NOTE | 2023-03-31 14:39 | MM ---
Reason for Exam: Post Procedure Mammogram. Last screening mammogram was performed less than 1 month ago. Patient History: Menarche at age 12. Hysterectomy at age 38. Postmenopausal. Core Biopsy on the Right side. Core Biopsy on the Right side. Excisional Biopsy on the Left side. 11/13/1999, Benign Stereotactic Core Biopsy on the right side. Prior Study Comparison: 12/21/2002 Bilateral Screening Mammogram, [facility]. 12/24/2003 Bilateral Screening Mammogram, [facility]. 03/22/2023 Bilateral MG 3D diag mammo w/cad ANNY, [facility]. Tissue Density: Right: The breast tissue is heterogeneously dense. This may lower the sensitivity of mammography. Overall Assessment: Post procedure mammogram for marker placement Management: Post Mammogram for Maycol Placement Electronically signed and approved by: Alex Khan DO
--- NOTE | 2023-04-08 09:30 | USB ---
Prior Study Comparison: 12/21/2002 Bilateral Screening Mammogram, [facility]. 12/24/2003 Bilateral Screening Mammogram, [facility]. 03/22/2023 Bilateral MG 3D diag mammo w/cad ANNY, [facility]. Pathology Description: Location: 5 o'clock. Marker Left Behind. Needle Type: Bard 14g x 10cm Cores: 3 Skin Nicks: 1 Pathology Description: Location: 7 o'clock. Marker Left Behind. Needle Type: Bard 14g x 10cm Cores: 3 Skin Nicks: 1 Pathology Description: Location: 1 o'clock. Marker Left Behind. Needle Type: Bard 14g x 10cm Cores: 2 Skin Nicks: 1 The procedure of ultrasound guided core biopsy was explained to the patient. Benefits, alternatives, and risks were discussed. An informed consent was then obtained. The patient was placed in supine positioning for imaging and for the procedure. The overlying skin was prepped and draped in usual sterile fashion. Lidocaine was used as anesthetic into the skin and subcutaneous tissue up to area of concern in the right breast. A timo was made with surgical scalpel. Under ultrasound guidance, a 14-gauge biopsy gun device was used to obtain 2 core samples from the lesion at 1:00, 3 core samples from the lesion at 5:00, and 3 core samples from the lesion at 7:00. There is a coil clip placed at 1:00, butterfly clip placed at 5:[address]; The patient tolerated the procedure well without any immediate complication. The patient was kept in the radiology department for short stay after the procedure and then discharged home in stable condition. Postprocedure mammogram: The patient was transferred to mammography for physician ordered post procedure mammogram for clip placement verification. Impression: Successful, uncomplicated ultrasound guided core biopsy of area of concern in the right breast, full pathology results to follow. Pathology Results: Result: Malignant, Invasive ductal carcinoma. A. RIGHT BREAST, 1:00 POSITION, CORE BIOPSY: Poorly differentiated ductal carcinoma (see surgical pathology cancer case summary and comment). B. RIGHT BREAST, 5:00 POSITION, CORE BIOPSY: Poorly differentiated ductal carcinoma (see surgical pathology cancer case summary and comment). C. RIGHT BREAST, 7:00 POSITION, CORE BIOPSY: Poorly differentiated ductal carcinoma (see surgical pathology cancer case summary and comment). Overall Assessment: Malignant Management: Surgical Consultation of the right breast. Electronically signed and approved by: Alex Khan DO
== END ==
LOC: RADUSWWP 10:01
PROVIDERS: ATTEND Surgery
DX: C50.211 Malignant neoplasm of upper-inner quadrant of right female breast (principal); Z17.0 Estrogen receptor positive status [ER+]
CPT/HCPCS: 88305; 88342; 88341; 77065; 19083; 19084; A4648

== ENCOUNTER → 2023-04-12 | Outpatient (CLI) | payer MEDICARE ==
[2023-04-12 12:26] VITALS: BP 113/59; PULSE 55; RESP 17; TEMP 97.3
--- NOTE | 2023-04-12 12:57 | P.GSHP ---
History of Present Illness H&P Date: 04/12/23 Chief Complaint: Right breast invasive ductal carcinoma Unique is an 88-year-old white female seen in consultation for Dr. Diane regarding a biopsy-proven right breast invasive ductal carcinoma. She underwent a bilateral mammogram on . This revealed multiple asymmetry seen within the right breast some of which were felt to correlate with palpable abnormalities. This was felt to be incomplete and right breast ultrasound was recommended. The ultrasound was done on . The patient's ultrasound revealed at the 5 o'clock position 3 cm from the nipple irregular tissue with ill-defined borders and calcifications present 7:00 3 cm from the nipple an area of palpable abnormality was irregular shaped oval mass Area at 1:00 2 cm from the nipple and 19 x 13 mm hypoechoic irregular shaped mass All areas were biopsied on . The biopsies revealed poorly differentiated ductal carcinoma at all 3 sites. An ultrasound of the liver was performed on which revealed indeterminant hepatic lesions which needed to be further characterized with MRI of the liver. The liver a complex lesion was seen in the lateral left lobe. The patient states she has not had a mammogram for many years. She has however been able to feel some nodularity in her right breast and she is uncertain as to how long she is felt to nodularity. In the remote past she had a left breast biopsy which was benign. Patient states the reason she was seen by the doctors that she felt a lump in her breast. Caffeine:occasional nicotine: stopped 50 years ago, used to smoke 1 PPD 20 years chocolate: chocolate equate daily BCP: 2 years hormones: none Family History: 1/2 brother: colon cancer mother: colon cancer daughter: lung cancer; smoker Hormonal History: menarche: 12 , breast fed: yes, age at first : 17 menopause: hysterectomy at 38 Surgical History: hysterectomy ? if took ovaries; no cancer did for control carpel tune; gallbaldder Hemorrhoids Medical History: COPD HTN high cholesterol joint pain hypothyroid Social History: nicotine: as above alcohol: none drugs: none - Constitutional Constitutional: Denies chills, Denies fever - EENT Eyes: denies blurred vision, denies pain Ears: deny: decreased hearing, tinnitus Ears, nose, mouth and throat: Reports headache, Denies sore throat - Breasts Breasts: bilateral: as per HPI - Cardiovascular Cardiovascular: Reports chest pain, Denies shortness of breath - Respiratory Comment: COPD Respiratory: Reports cough - Gastrointestinal Gastrointestinal: Reports constipation - Genitourinary (Female) Genitourinary: Denies dysuria, Denies hematuria - Menstruation Menstruation: Reports post hysterectomy - Musculoskeletal Musculoskeletal: Reports myalgias - Integumentary Comment: normal turgor Integumentary: Reports pruritus - Neurological Neurological: Denies numbness, Denies weakness - Psychiatric Psychiatric: Denies anxiety, Denies depression - Endocrine Comment: hypothyroid - Hematologic/Lymphatic Comment: none - Allergic/Immunologic Allergic/Immunologic: Reports as per HPI Past Medical History Past Medical History: COPD, Hyperlipidemia, Hypertension, Thyroid Disorder Additional Past Medical History / Comment(s): Oxygen at night History of Any Multi-Drug Resistant Organisms: None Reported Past Surgical History: Adenoidectomy, Appendectomy, Breast Surgery, Cholecystectomy, Hysterectomy, Orthopedic Surgery, Tonsillectomy Additional Past Surgical History / Comment(s): BILAT CARPEL tunnel, hemorroidectomy, LT BREAST LUMPECTOMY, COLONOSCOPY, BILAT CATARACTS REMOVED WITH LENS IMPLANTS Past Anesthesia/Blood Transfusion Reactions: No Reported Reaction Past Psychological History: No Psychological Hx Reported Smoking Status: Former smoker Past Alcohol Use History: None Reported Additional Past Alcohol Use History / Comment(s): QUIT SMOKING 1990 Past Drug Use History: None Reported - Past Family History Brother(s) Family Medical History: Cancer Mother Family Medical History: Cancer Daughter(s) Family Medical History: Cancer Medications and Allergies Home Medications Medication Instructions Recorded Confirmed Type Lovastatin [Mevacor] 20 mg PO HS 07/18/17 03/23/23 History Oxybutynin Chloride 5 mg PO TID 07/18/17 03/23/23 History Tiotropium 18 Mcg/Puff [Spiriva] 1 cap INHALATION RT-DAILY 07/18/17 03/23/23 History Gabapentin [Neurontin] 100 mg PO BID 02/27/21 03/23/23 History Levothyroxine Sodium 88 mcg PO DAILY 02/27/21 03/23/23 History Losartan [Cozaar] 25 mg PO DAILY 02/27/21 03/23/23 History Metoprolol Succinate [Toprol XL] 50 mg PO DAILY 02/27/21 03/23/23 History Spironolactone 25 mg PO DAILY 02/27/21 03/23/23 History Allergies Allergy/AdvReac Type Severity Reaction Status Date / Time No Known Allergies Allergy Verified 03/23/23 13:08 Surgical - Exam - General no distress - Eyes normal ocular movement - Neck trachea midline - Respiratory normal respiratory effort, clear to auscultation - Cardiovascular Rhythm: regular Heart Sounds: normal: S1, S2 - Abdomen Abdomen: soft, non tender, no guarding, no rigid, no rebound - Integumentary normal turgor - Neurologic no disoriented, no combative - Musculoskeletal limited mobility - Psychiatric oriented to time, oriented to person, oriented to place, speech is normal, memory intact Breast Exam: BRA: does not wear a bra Section: Bilateral grade 3 to grade 3 ptosis Palpation: Right breast: Multi-positional exam nodules noted at 1:00 5:00 and 7:00 they are not fixed to the chest wall The size of the nodules are approximately 1-1/2-2 cm for each nodule the largest appears to be the 7:00 nodule Right axilla: No adenopathy of concern Left breast: Multi-positional exam no dominant masses or nodules of concern Left axilla: No adenopathy of concern Results Mammogram and ultrasound reviewed with Dr. 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 Gómez
== END ==
LOC: WWCWWP 11:53
PROVIDERS: ATTEND Surgery
DX: C50.211 Malignant neoplasm of upper-inner quadrant of right female breast (principal); C50.511 Malignant neoplasm of lower-outer quadrant of right female breast; E03.9 Hypothyroidism, unspecified; E78.00 Pure hypercholesterolemia, unspecified; I10 Essential (primary) hypertension; J44.9 Chronic obstructive pulmonary disease, unspecified; N64.89 Other specified disorders of breast; Z17.0 Estrogen receptor positive status [ER+]; Z79.890 Hormone replacement therapy; Z80.0 Family history of malignant neoplasm of digestive organs; Z87.19 Personal history of other diseases of the digestive system; Z87.891 Personal history of nicotine dependence; Z90.49 Acquired absence of other specified parts of digestive tract

== ENCOUNTER → 2023-04-19 | Outpatient (CLI) | payer MEDICARE ==
--- NOTE | 2023-04-20 08:58 | MR ---
EXAMINATION TYPE: MR liver wo/w con DATE OF EXAM: 04/19/2023 5:20 PM INDICATION: Patient age:Female; 88 years old; Reason for study: R16.0; PHH. Liver mass COMPARISON: Ultrasound 03/23/2023 TECHNIQUE: Multiplanar multi-sequence imaging was performed without contrast. Post contrast imaging was performed. Post IV contrast subtraction images were also submitted for review. IV Contrast: 7 cc Gadavist FINDINGS: LOWER CHEST: No gross irregularity. ABDOMEN Motion limited exam. Liver: Left hepatic lobe intermediate T2 signal 14 mm lesion corresponding with intermediate/low T1 s ignal. Post contrast imaging demonstrates some motion artifact while evaluating this lesion no defini tive enhancement is visualized. On subtraction imaging there is also some motion artifact and no defi nitive enhancement identified. There are at least 2 other additional areas of high DWI signal within the left hepatic lobe series 50 4 image 208 and image 168 measuring 6 and 3 mm respectively. These do not definitively demonstrate po stcontrast enhancement. Gallbladder and Bile ducts: Unremarkable. Pancreas: Unremarkable. Spleen: Unremarkable. Adrenal glands: Unremarkable. Kidneys: Unremarkable. Stomach and Bowel: Unremarkable as visualized. Peritoneum: No evidence of pneumoperitoneum or free fluid. Vasculature: Infrarenal abdominal fusiform aorta dilation up to 3.4 cm. Atherosclerosis of the arteri al vasculature. Musculoskeletal: The osseous structures appear intact. Lymph Nodes: No gross evidence for lymphadenopathy. Abdominal wall: Small fat-containing umbilical hernia. IMPRESSION: 1. Hepatic lesion in the left hepatic lobe measuring 15 mm which does not definitively demonstrate e nhancement. Evaluation slightly limited given motion artifact. Given patient's history of malignancy, Consider tissue sampling for definitive diagnosis alternatively surveillance with versus surveillanc e with CT imaging. If there is prior imaging at outside institution available and may be benefit for stability. 2. There are 2 additional small foci of high signal which does not definitively enhance also present in the left hepatic lobe. These are indeterminate. 3. Infrarenal abdominal aorta fusiform aneurysmal dilation 3.4 cm.
== END | disposition home or self-care (01) ==
LOC: RADMRIMAIN 15:41
PROVIDERS: ATTEND Internal Medicine
DX: I71.43 Infrarenal abdominal aortic aneurysm, without rupture (principal); K76.89 Other specified diseases of liver; R16.0 Hepatomegaly, not elsewhere classified
CPT/HCPCS: 74183; A9585

== ENCOUNTER → 2023-05-11 | Outpatient (CLI) | payer MEDICARE ==
[2023-05-11 17:55] LABS: African American GFR (CKD) >90 (>60 ml/min/1.73 sqM); Blood Urea Nitrogen 24 mg/dL (7-17); Non-African American GFR(CKD) 81 (>60 ml/min/1.73 sqM)
--- NOTE | 2023-05-11 18:40 | CT ---
EXAMINATION TYPE: CT angio chest CT DLP: 153.1 mGycm, Automated exposure control for dose reduction was used. DATE OF EXAM: 05/11/2023 6:29 PM COMPARISON: None CLINICAL INDICATION:Female, 88 years old with history of R06.89 OTHER ABNORMALITIES OF BREATHING; SOB TECHNIQUE/CONTRAST: CTA scan of the thorax is performed with IV Contrast, patient injected with 73cc mL of Isovue 370, GA P images are created and reviewed these are created on a separate workstation.. FINDINGS: Pulmonary Artery: There is no evidence for a filling defect within the pulmonary vasculature to sugge st acute pulmonary embolism. The pulmonary artery is of normal size. Lungs/Pleura: Severe emphysema changes throughout the lungs. No evidence of focal consolidation, pleu ral effusion or pneumothorax. Airway: Large airways are patent. Heart: Heart is within normal limits for size. Vasculature: No evidence of aortic aneurysm. Infrarenal abdominal aortic aneurysm partially visualize d measuring 3.2 x 2.9 cm. Mediastinum: No gross evidence of adenopathy. Musculoskeletal: No acute osseous abnormalities Soft Tissues: Unremarkable. Lower neck: No significant findings. Upper Abdomen: No significant findings. IMPRESSION: 1. No evidence of pulmonary embolism. 2. Severe emphysema changes. 3. Infrarenal abdominal aortic aneurysm partially visualized measuring 3.2 x 2.9 cm.
== END | disposition home or self-care (01) ==
LOC: RADCTMAIN 17:11
PROVIDERS: ATTEND Internal Medicine
DX: J43.9 Emphysema, unspecified (principal); I71.43 Infrarenal abdominal aortic aneurysm, without rupture; R06.89 Other abnormalities of breathing
CPT/HCPCS: 82565; 84520; 71275; 36415; Q9967

== ENCOUNTER 2023-07-04 10:29 | Emergency (ER) | payer MEDICARE ==
[2023-07-04] MEDS ORDERED: SODIUM CHLORIDE 0.9% 1,000 ML IV STA (10:31)
--- NOTE | 2023-07-04 11:13 | CT ---
EXAMINATION TYPE: CT brain frank wo con DATE OF EXAM: 07/04/2023 COMPARISON: 07/18/2017 HISTORY: Syncope and fall. CT DLP: 1490.3 mGycm Automated exposure control for dose reduction was used. TECHNIQUE: CT scan of the head and cervical spine are performed without contrast. FINDINGS: Head CT: The ventricles, basal cisterns and sulci over convexities are within normal limits for the patient's age. There is no mass effect or shift of midline structures. There is a small remote Infarct in left basal ganglia. There is mild ischemic white matter demyelinat ion. There is no acute intra or extra-axial hemorrhage. The calvarium is intact and the mastoid air cells and paranasal sinuses are well aerated with excepti on mild chronic inflammatory change in the left aspect of the sphenoid sinus. CT cervical spine The craniovertebral junction relationships and prevertebral soft tissues are normal. The cervical vertebral segments are normal in height and alignment and there is no fracture subluxati on. The disc spaces well-maintained There is mild degenerative change of the uncovertebral joints and moderate degenerative change of the facet joints. There is no bony protrusion of the cervical canal.
[2023-07-04] MEDS ORDERED: HYDROmorphone 0.5 MG/0.5 ML SYRINGE IVP STA ×3 (11:18→15:09)
[2023-07-04] MEDS ORDERED: DILTIAZEM DRIP BOLUS FROM BAG 1 MG SOLN IV ONE (11:19)
--- NOTE | 2023-07-04 11:19 | ED ---
General Adult HPI - General Chief complaint: Syncope Stated complaint: Syncope Time Seen by Provider: 07/04/23 10:31 Source: patient, EMS, RN notes reviewed, old records reviewed Mode of arrival: EMS Limitations: no limitations - History of Present Illness Initial comments: 88-year-old female with metastatic breast cancer presenting for evaluation of sy ncopal episode, fall, left knee pain. Patient was initially unresponsive upon EMS arrival but she gradually woke during transport. She is alert and oriented to time my evaluation. Her blood pressure was initially quite low in the 60s but this is also improved. She was noted to be in atrial fibrillation with rapid ventricular response which she does not have a history of. Additionally she complains of left knee pain from the fall. No reported head injury, no headache. No chest pain. No abdominal pain. No vomiting. - Related Data Home Medications Medication Instructions Recorded Confirmed Lovastatin [Mevacor] 20 mg PO HS 07/18/17 04/12/23 Oxybutynin Chloride 5 mg PO TID 07/18/17 04/12/23 Tiotropium 18 Mcg/Puff [Spiriva] 1 cap INHALATION RT-DAILY 07/18/17 04/12/23 Gabapentin [Neurontin] 100 mg PO BID 02/27/21 04/12/23 Levothyroxine Sodium 88 mcg PO DAILY 02/27/21 04/12/23 Losartan [Cozaar] 25 mg PO DAILY 02/27/21 04/12/23 Metoprolol Succinate [Toprol XL] 50 mg PO DAILY 02/27/21 04/12/23 Spironolactone 25 mg PO DAILY 02/27/21 04/12/23 Allergies Allergy/AdvReac Type Severity Reaction Status Date / Time No Known Allergies Allergy Verified 07/04/23 10:38 Review of Systems ROS Statement: Those systems with pertinent positive or pertinent negative responses have been documented in the HPI. ROS Other: All systems not noted in ROS Statement are negative. Past Medical History Past Medical History: Cancer, COPD, Hyperlipidemia, Hypertension, Thyroid Disorder Additional Past Medical History / Comment(s): Oxygen at night, breast cancer metastasized History of Any Multi-Drug Resistant Organisms: None Reported Past Surgical History: Adenoidectomy, Appendectomy, Breast Surgery, Cholecystectomy, Hysterectomy, Orthopedic Surgery, Tonsillectomy Additional Past Surgical History / Comment(s): BILAT CARPEL tunnel, hemorroidectomy, LT BREAST LUMPECTOMY, COLONOSCOPY, BILAT CATARACTS REMOVED WITH LENS IMPLANTS Past Anesthesia/Blood Transfusion Reactions: No Reported Reaction Past Psychological History: No Psychological Hx Reported Smoking Status: Former smoker Past Alcohol Use History: None Reported Past Drug Use History: None Reported - Past Family History Brother(s) Family Medical History: Cancer Mother Family Medical History: Cancer Daughter(s) Family Medical History: Cancer General Exam Limitations: no limitations General appearance: alert, cachectic Head exam: Present: atraumatic, normocephalic Eye exam: Present: normal appearance, PERRL ENT exam: Present: normal exam Neck exam: Present: normal inspection. Absent: tenderness, meningismus Respiratory exam: Present: normal lung sounds bilaterally. Absent: respiratory distress, wheezes Cardiovascular Exam: Present: tachycardia, irregular rhythm GI/Abdominal exam: Present: soft. Absent: distended, tenderness Extremities exam: Present: joint swelling (Pain and swelling to the distal femur and proximal knee on the left) Neurological exam: Present: alert, oriented X3, CN II-XII intact. Absent: motor sensory deficit Psychiatric exam: Present: normal affect, normal mood Skin exam: Present: warm, dry, intact Course Vital Signs 07/04/23 07/04/23 07/04/23 10:31 11:30 11:45 Temperature 97.8 F Pulse Rate 152 H 140 H 142 H Respiratory 17 18 16 Rate Blood Pressure 99/85 97/82 119/77 O2 Sat by Pulse 93 L 95 Oximetry 07/04/23 07/04/23 07/04/23 12:00 12:15 12:30 Temperature Pulse Rate Respiratory Rate Blood Pressure 118/76 101/73 107/82 O2 Sat by Pulse Oximetry 07/04/23 12:55 Temperature Pulse Rate 138 H Respiratory 17 Rate Blood Pressure 112/84 O2 Sat by Pulse 96 Oximetry Medical Decision Making - Medical Decision Making Was pt. sent in by a medical professional or institution (, PA, DESILVERIZER, urgent care, hospital, or prison...) When possible be specific @ -No Did you speak to anyone other than the patient for history (EMS, parent, family, police, friend...)? What history was obtained from this source @Patient's daughter, EMS Did you review nursing and triage notes (agree or disagree)? Why? @ -I reviewed and agree with nursing and triage notes Were old charts reviewed (outside hosp., previous admission, EMS record, old EKG, old radiological studies, urgent care reports/EKG's, prison records)? Report findings @ -No old charts were reviewed Differential Diagnosis (chest pain, altered mental status, abdominal pain women, abdominal pain men, vaginal bleeding, weakness, fever, dyspnea, syncope, headache, dizziness, GI bleed, back pain, seizure, CVA, palpatations, mental health, musculoskeletal)? @ -Differential Syncope: Valvular disease, hypertrophic cardiomyopathy, pulmonary embolism, tamponade, tachycardia, bradycardia, HI, hypovolemia, hemorrhage, dissection, anemia, intracranial hemorrhage, seizure, hypoglycemia, carbon monoxide poisoning, this is not meant to be an all-inclusive list. EKG interpreted by me (3pts min.). @ -[ -Atrial fibrillation with rapid ventricular response rate of 150, QRS duration 138, QTC 396, ST segment depression which is diffuse X-rays interpreted by me (1pt min.). @ -X-ray of the knee reveals a distal femur fracture with intra-articular extension CT interpreted by me (1pt min.). @ -CT brain negative for intracranial hemorrhage or mass effect U/S interpreted by me (1pt. min.). @ -None done What testing was considered but not performed or refused? (CT, X-rays, U/S, labs)? Why? @ -None What meds were considered but not given or refused? Why? @ -None Did you discuss the management of the patient with other professionals (professionals i.e. , PA, DESILVERIZER, lab, RT, psych nurse, community mental health social worker, curb supervisor, teacher, security flex utility officer, case fitter)? Give summary @ -:Fabio Covering for Dr. Lindsey, Dr. Mercado will accept the patient at [facility]. Was smoking cessation discussed for >3mins.? @ -No Was critical care preformed (if so, how long)? @ -[Yes, 35 minutes Were there social determinants of health that impacted care today? How? (Homelessness, low income, unemployed, alcoholism, drug addiction, transportation, low edu. Level, literacy, decrease access to med. care, nursing home, rehab)? @ -No Was there de-escalation of care discussed even if they declined (Discuss DNR or withdrawal of care, Hospice)? DNR status @ -No What co-morbidities impacted this encounter? (DM, HTN, Smoking, COPD, CAD, Cancer, CVA, ARF, Chemo, Hep., AIDS, mental health diagnosis, sleep apnea, morbid obesity)? @ -[Metastatic breast cancer, Was patient admitted / discharged? Hospital course, mention meds given and route, prescriptions, significant lab abnormalities, going to OR and other pertinent info. @ -[88-year-old female with syncopal episode. Patient has metastatic breast cancer. This has been reported is terminal. She had a syncopal episode today resulting in fall. Her only pain complaint is of left knee. She does have a minimally displaced comminuted distal femur fracture with intra-articular extension. Head CT and cervical spine negative for to medic injury. Chest and pelvis x-ray negative for traumatic injury. She has normal laboratory testing. She is in atrial fibrillation with RVR which is a new diagnosis for her. She started on Cardizem in the emergency department for rate control. Blood pressure remained stable. Patient is agreeable with transfer for orthopedic repair of the left distal femur fracture. She's placed in a knee immobilizer prior to transfer. Undiagnosed new problem with uncertain prognosis? @ -No Drug Therapy requiring intensive monitoring for toxicity (Heparin, Nitro, Insulin, Cardizem)? @ -No Were any procedures done? @ -No Diagnosis/symptom? @ -Syncope, atrial fibrillation with RVR, and distal femur fracture Acute, or Chronic, or Acute on Chronic? @ -[Acute Uncomplicated (without systemic symptoms) or Complicated (systemic symptoms)? @ -default Side effects of treatment? @ -No Exacerbation, Progression, or Severe Exacerbation? @ -No Poses a threat to life or bodily function? How? (Chest pain, USA, HI, pneumonia, PE, COPD, DKA, ARF, appy, cholecystitis, CVA, Diverticulitis, Homicidal, Suicidal, threat to staff... and all critical care pts) @ -Yes, arrhythmia - Lab Data Result diagrams: 07/04/23 10:39 07/04/23 10:39 Lab Results 07/04/23 07/04/23 07/04/23 Range/Units 10:39 10:39 10:39 WBC 5.6 (3.8-10.6) k/uL RBC 3.90 (3.80-5.40) m/uL Hgb 12.6 (11.4-16.0) gm/dL Hct 38.2 (34.0-46.0) % MCV 98.0 (80.0-100.0) fL MCH 32.3 (25.0-35.0) pg MCHC 33.0 (31.0-37.0) g/dL RDW 13.1 (11.5-15.5) % Plt Count 118 L (150-450) k/uL MPV 8.8 Neutrophils % 55 % Lymphocytes % 28 % Monocytes % 11 % Eosinophils % 2 % Basophils % 0 % Neutrophils # 3.1 (1.3-7.7) k/uL Lymphocytes # 1.6 (1.0-4.8) k/uL Monocytes # 0.6 (0-1.0) k/uL Eosinophils # 0.1 (0-0.7) k/uL Basophils # 0.0 (0-0.2) k/uL PT 11.0 (9.0-12.0) sec INR 1.1 (<1.2) APTT 19.1 L (22.0-30.0) sec Sodium 130 L (137-145) mmol/L Potassium 4.3 (3.5-5.1) mmol/L Chloride 95 L (98-107) mmol/L Carbon Dioxide 26 (22-30) mmol/L Anion Gap 9 mmol/L BUN 19 H (7-17) mg/dL Creatinine 0.75 (0.52-1.04) mg/dL Est GFR (CKD-EPI)AfAm 82 (>60 ml/min/1.73 sqM) Est GFR (CKD-EPI)NonAf 72 (>60 ml/min/1.73 sqM) Glucose 122 H (74-99) mg/dL Calcium 8.8 (8.4-10.2) mg/dL Magnesium 1.9 (1.6-2.3) mg/dL Total Bilirubin 0.8 (0.2-1.3) mg/dL AST 34 (14-36) U/L ALT 17 (4-34) U/L Alkaline Phosphatase 96 (38-126) U/L Troponin I (0.000-0.034) ng/mL Total Protein 6.4 (6.3-8.2) g/dL Albumin 3.1 L (3.5-5.0) g/dL Urine Color Urine Appearance (Clear) Urine pH (5.0-8.0) Ur Specific [place] (1.001-1.035) Urine Protein (Negative) Urine Glucose (UA) (Negative) Urine Ketones (Negative) Urine Blood (Negative) Urine Nitrite (Negative) Urine Bilirubin (Negative) Urine Urobilinogen (<2.0) mg/dL Ur Leukocyte Esterase (Negative) Urine RBC (0-5) /hpf Urine WBC (0-5) /hpf Amorphous Sediment (None) /hpf Urine Mucus (None) /hpf 07/04/23 07/04/23 Range/Units 10:39 10:39 WBC (3.8-10.6) k/uL RBC (3.80-5.40) m/uL Hgb (11.4-16.0) gm/dL Hct (34.0-46.0) % MCV (80.0-100.0) fL MCH (25.0-35.0) pg MCHC (31.0-37.0) g/dL RDW (11.5-15.5) % Plt Count (150-450) k/uL MPV Neutrophils % % Lymphocytes % % Monocytes % % Eosinophils % % Basophils % % Neutrophils # (1.3-7.7) k/uL Lymphocytes # (1.0-4.8) k/uL Monocytes # (0-1.0) k/uL Eosinophils # (0-0.7) k/uL Basophils # (0-0.2) k/uL PT (9.0-12.0) sec INR (<1.2) APTT (22.0-30.0) sec Sodium (137-145) mmol/L Potassium (3.5-5.1) mmol/L Chloride (98-107) mmol/L Carbon Dioxide (22-30) mmol/L Anion Gap mmol/L BUN (7-17) mg/dL Creatinine (0.52-1.04) mg/dL Est GFR (CKD-EPI)AfAm (>60 ml/min/1.73 sqM) Est GFR (CKD-EPI)NonAf (>60 ml/min/1.73 sqM) Glucose (74-99) mg/dL Calcium (8.4-10.2) mg/dL Magnesium (1.6-2.3) mg/dL Total Bilirubin (0.2-1.3) mg/dL AST (14-36) U/L ALT (4-34) U/L Alkaline Phosphatase (38-126) U/L Troponin I 0.019 (0.000-0.034) ng/mL Total Protein (6.3-8.2) g/dL Albumin (3.5-5.0) g/dL Urine Color Colorless Urine Appearance Cloudy H (Clear) Urine pH 6.5 (5.0-8.0) Ur Specific [place] 1.008 (1.001-1.035) Urine Protein Negative (Negative) Urine Glucose (UA) Negative (Negative) Urine Ketones Negative (Negative) Urine Blood Negative (Negative) Urine Nitrite Negative (Negative) Urine Bilirubin Negative (Negative) Urine Urobilinogen <2.0 (<2.0) mg/dL Ur Leukocyte Esterase Trace H (Negative) Urine RBC 1 (0-5) /hpf Urine WBC 3 (0-5) /hpf Amorphous Sediment Few H (None) /hpf Urine Mucus Rare H (None) /hpf Critical Care Time Critical Care Time: Yes Total Critical Care Time: 35 Disposition Clinical Impression: Atrial fibrillation with rapid ventricular response, Femoral distal fracture, Syncope Disposition: OTHER INSTITUTION NOT DEFINED Condition: Serious Is patient prescribed a controlled substance at d/c from ED?: No Referrals: Vincenzo Gómez MD [Primary Care Provider] - 1-2 days Time of Disposition: 13:24 - Out of Hospital Transfer - Req. Specs Out of Hospital Transfer - Requested Specifics: Other Emergency Center (Transfer to [facility])
[2023-07-04 11:28] LABS: Basophils % (A) 0 %; Eosinophils # (A) 0.1 k/uL (0-0.7); Eosinophils % (A) 2 %; HCT 38.2 % (34.0-46.0); HGB 12.6 gm/dL (11.4-16.0); Lymphocytes # (A) 1.6 k/uL (1.0-4.8); Lymphocytes % (A) 28 %; MCH 32.3 pg (25.0-35.0); Mean Platelet Volume 8.8; Monocytes # (A) 0.6 k/uL (0-1.0); Monocytes % (A) 11 %; Neutrophils # (A) 3.1 k/uL (1.3-7.7); Neutrophils % (A) 55 %; Platelet Count 118 k/uL (150-450); RDW 13.1 % (11.5-15.5); WBC 5.6 k/uL (3.8-10.6)
[2023-07-04] MEDS ORDERED: DILTIAZEM 125 MG in SODIUM CHLORIDE 0.9% 100 ML IV SCH (11:30)
--- NOTE | 2023-07-04 11:36 | XR ---
Pelvis HISTORY: Fall. COMPARISON: None. TECHNIQUE: Single AP view the pelvis is obtained FINDINGS: There is no pelvic fracture. There is no diastasis of the SI joints or pubic symphysis. The hips are mildly degenerated but there is no hip fracture or dislocation. IMPRESSION: No evidence of pelvic fracture.
--- NOTE | 2023-07-04 11:39 | XR ---
Left knee HISTORY: Pain following trauma COMPARISON: None. TECHNIQUE: 3 views left knee were obtained FINDINGS: There is a comminuted mildly displaced intra-articular fracture of the distal left femur. The proxima l tibia and fibula are intact. There is mild to moderate osteoarthritic change of the medial and lateral compartments of the knee. There is no joint effusion. IMPRESSION: Comminuted intra-articular fracture of the distal left femur.
--- NOTE | 2023-07-04 11:42 | XR ---
EXAMINATION TYPE: XR chest 2V DATE OF EXAM: 07/04/2023 COMPARISON: 09/09/2022 HISTORY: Syncope TECHNIQUE: Frontal and lateral views of the chest are obtained. FINDINGS: Heart mildly prominent size. Mild increase interstitial markings in the right lung reflect chronic in terstitial changes versus mild pulmonary vascular congestion. There is no pleural effusion. There is no pneumothorax. The osseous structures are grossly intact. IMPRESSION: 1. Mild cardiomegaly. 2. Mild chronic interstitial changes versus mild pulmonary vascular congestion and interstitial edema within the right lung. Clinical correlation regarding possible mild CHF.
[2023-07-04 11:44] LABS: INR 1.1 (<1.2)
[2023-07-04 11:45] LABS: Partial Thromboplastin Time 19.1 sec (22.0-30.0)
[2023-07-04 11:56] LABS: ALT 17 U/L (4-34); AST 34 U/L (14-36); African American GFR (CKD) 82 (>60 ml/min/1.73 sqM); Albumin 3.1 g/dL (3.5-5.0); Alkaline Phosphatase 96 U/L (38-126); Anion Gap 9 mmol/L; Blood Urea Nitrogen 19 mg/dL (7-17); Calcium 8.8 mg/dL (8.4-10.2); Carbon Dioxide 26 mmol/L (22-30); Chloride 95 mmol/L (98-107); Glucose 122 mg/dL (74-99); Magnesium 1.9 mg/dL (1.6-2.3); Non-African American GFR(CKD) 72 (>60 ml/min/1.73 sqM); Potassium 4.3 mmol/L (3.5-5.1); Sodium 130 mmol/L (137-145); Total Bilirubin 0.8 mg/dL (0.2-1.3); Total Protein 6.4 g/dL (6.3-8.2)
[2023-07-04 12:38] LABS: Amorphous Sediment,Urine Few /hpf; Appearance,Urine Cloudy (Clear); Bilirubin,Urine Negative (Negative); Blood,Urine Negative (Negative); Color,Urine Colorless; Glucose,Urine (UA) Negative (Negative); Ketones,Urine Negative (Negative); Leukocyte Esterase,Urine Trace (Negative); Mucus,Urine Rare /hpf; Nitrite,Urine Negative (Negative); PH, Urine 6.5 (5.0-8.0); Protein,Urine Negative (Negative); RBC,Urine 1 /hpf (0-5); Specific Gravity,Urine 1.008 (1.001-1.035); Urobilinogen,Urine <2.0 mg/dL (<2.0); WBC,Urine 3 /hpf (0-5)
[2023-07-04 14:09] VITALS: RESP 16
[2023-07-04 15:14] VITALS: BP 114/77; PULSE 147; TEMP 98
== END 2023-07-04 15:30 | disposition other institution (70) ==
LOC: EC 10:29
DX: S72.402A Unspecified fracture of lower end of left femur, initial encounter for closed fracture (principal); I48.91 Unspecified atrial fibrillation; R55 Syncope and collapse; I10 Essential (primary) hypertension; J44.9 Chronic obstructive pulmonary disease, unspecified; E07.9 Disorder of thyroid, unspecified; E78.5 Hyperlipidemia, unspecified; Z79.890 Hormone replacement therapy; Z79.899 Other long term (current) drug therapy; Z87.891 Personal history of nicotine dependence; Z85.3 Personal history of malignant neoplasm of breast; Z90.49 Acquired absence of other specified parts of digestive tract; W18.39XA Other fall on same level, initial encounter
CPT/HCPCS: 96366 ×4; 96376 ×3; 96361 ×2; 96365 ×2; 96375 ×2; 99291; 36415; 93005; 80053; 83735; 84484; 85025; 85610; 85730; 81001; 72170; 73562; 71046; 72125; 70450; J1170

== ENCOUNTER 2023-07-24 22:12 | Observation (INO) | payer MEDICARE ==
[2023-07-24] MEDS ORDERED: NALOXONE 0.4 MG/ML 1 ML VIAL IV PRN (23:45)
--- NOTE | 2023-07-24 23:45 | ED ---
Weakness HPI - General Chief complaint: Weakness Stated complaint: Weakness Time Seen by Provider: 07/24/23 22:15 Source: EMS Mode of arrival: EMS - History of Present Illness Initial comments: 88-year-old female with past medical history of breast cancer with liver metastases, recent distal femur fracture who presents to the emergency room from [facility]. [facility] reports that the patient has had altered mental status and bradycardia. They report to increase somnolence. Daughter is at bedside and states that she was with her until 3:30 today. Reports that she seemed sleepy but otherwise acting her normal self. No report of any fevers. The patient has distal femur pain but has received minimal pain medications in the past week. Patient was offered surgery however family refused due to her terminal status. At this time the patient cannot provide much history. She repetitively keeps stating "I'm just really sleepy" - Related Data Home Medications Medication Instructions Recorded Confirmed Lovastatin [Mevacor] 20 mg PO DAILY 07/18/17 07/24/23 Gabapentin [Neurontin] 100 mg PO TID@0900,1300,2100 02/27/21 07/24/23 Albuterol Sulfate [Ventolin HFA] 2 puff INHALATION RT-Q6H PRN 07/24/23 07/24/23 Aspirin EC [Ecotrin Low Dose] 81 mg PO DAILY 07/24/23 07/24/23 Diltiazem Cd [Cardizem CD] 180 mg PO DAILY 07/24/23 07/24/23 Ipratropium-Albuterol Nebulize 3 ml INHALATION RT-BID 07/24/23 07/24/23 [Duoneb 0.5 mg-3 mg/3 ml Soln] Ipratropium-Albuterol Nebulize 3 ml INHALATION RT-Q4H PRN 07/24/23 07/24/23 [Duoneb 0.5 mg-3 mg/3 ml Soln] Lactose-Reduced Food [Ensure Plus] 1 can PO BID@0900,1700 07/24/23 07/24/23 Levothyroxine Sodium [Synthroid] 75 mcg PO DAILY@0600 07/24/23 07/24/23 Metoprolol Tartrate [Lopressor] 100 mg PO BID 07/24/23 07/24/23 Na Phos,M-B/Na Phos,Di-Ba [Fleet 133 ml RECTAL ONCE 07/24/23 07/24/23 Adult] Sennosides-Docusate Sodium 1 tab PO Q12H PRN 07/24/23 07/24/23 [Senokot-S] oxyCODONE HCL [oxyCODONE HCL (IR)] 5 mg PO Q6H PRN 07/24/23 07/24/23 Allergies Allergy/AdvReac Type Severity Reaction Status Date / Time No Known Allergies Allergy Verified 07/24/23 22:33 Review of Systems ROS Statement: Those systems with pertinent positive or pertinent negative responses have been documented in the HPI. ROS Other: All systems not noted in ROS Statement are negative. Past Medical History Past Medical History: Cancer, COPD, Hyperlipidemia, Hypertension, Thyroid Disorder Additional Past Medical History / Comment(s): Oxygen at night, breast cancer metastasized History of Any Multi-Drug Resistant Organisms: None Reported Past Surgical History: Adenoidectomy, Appendectomy, Breast Surgery, Cholecystectomy, Hysterectomy, Orthopedic Surgery, Tonsillectomy Additional Past Surgical History / Comment(s): BILAT CARPEL tunnel, hemorroidectomy, LT BREAST LUMPECTOMY, COLONOSCOPY, BILAT CATARACTS REMOVED WITH LENS IMPLANTS Past Anesthesia/Blood Transfusion Reactions: No Reported Reaction Past Psychological History: No Psychological Hx Reported Smoking Status: Former smoker Past Alcohol Use History: None Reported Past Drug Use History: None Reported - Past Family History Brother(s) Family Medical History: Cancer Mother Family Medical History: Cancer Daughter(s) Family Medical History: Cancer General Exam Limitations: altered mental status General appearance: lethargic Head exam: Present: atraumatic, normocephalic, normal inspection Eye exam: Present: normal appearance, PERRL, EOMI. Absent: scleral icterus, conjunctival injection, periorbital swelling ENT exam: Present: mucous membranes dry Respiratory exam: Present: normal lung sounds bilaterally. Absent: respiratory distress, wheezes, rales, rhonchi, stridor Cardiovascular Exam: Present: bradycardia Extremities exam: Present: other (Brace left leg) Neurological exam: Present: altered Psychiatric exam: Present: flat affect Course Vital Signs 07/24/23 07/25/23 07/25/23 22:15 01:49 04:00 Temperature 97.6 F Pulse Rate 55 L 53 L 51 L Respiratory 18 16 16 Rate Blood Pressure 156/64 144/55 143/56 O2 Sat by Pulse 95 97 98 Oximetry 07/25/23 07/25/23 07/25/23 06:56 07:36 09:18 Temperature 98.2 F Pulse Rate 58 L 50 L 66 Respiratory 16 18 20 Rate Blood Pressure 154/55 156/55 159/91 O2 Sat by Pulse 100 97 97 Oximetry 07/25/23 07/25/23 07/25/23 12:00 14:00 14:04 Temperature Pulse Rate 80 45 L Respiratory 20 20 Rate Blood Pressure 151/88 135/59 O2 Sat by Pulse 98 98 98 Oximetry 07/25/23 07/25/23 16:00 16:40 Temperature Pulse Rate 40 L 45 L Respiratory 20 20 Rate Blood Pressure 135/79 135/68 O2 Sat by Pulse 98 Oximetry Medical Decision Making - Medical Decision Making Was pt. sent in by a medical professional or institution (, PA, DATA COLLECTION SPECIALIST, urgent care, hospital, or jail...) When possible be specific @ -Patient was sent in from [facility] care facility Did you speak to anyone other than the patient for history (EMS, parent, family, police, friend...)? What history was obtained from this source @ -I spoke with EMS and the patient's daughters Did you review nursing and triage notes (agree or disagree)? Why? @ -I reviewed and agree with nursing and triage notes Were old charts reviewed (outside hosp., previous admission, EMS record, old EKG, old radiological studies, urgent care reports/EKG's, jail records)? Report findings @ -I reviewed patient's transfer packet from [facility]. I also reviewed patient's last ED report where she was transferred to [facility] for her femur fracture Differential Diagnosis (chest pain, altered mental status, abdominal pain women, abdominal pain men, vaginal bleeding, weakness, fever, dyspnea, syncope, headache, dizziness, GI bleed, back pain, seizure, CVA, palpatations, mental health, musculoskeletal)? @ -Differential Altered Mental Status: Hypoglycemia, DKA, hypercapnia, ETOH, overdose, CO poisoning, trauma, myxedema coma, HTN encephalopathy, infection, encephalitis, psychosis, intercranial hemorrhage, hepatic encephalopathy, meningitis, CVA, this is not meant to be an all-inclusive list EKG interpreted by me (3pts min.). @ -Yes and demonstrates sinus bradycardia with a rate of 47. NH interval of 177. QRS 131. QTC of 430. No acute ST segment elevations or depressions. Significant baseline artifact X-rays interpreted by me (1pt min.). @ -None done CT interpreted by me (1pt min.). @ -None done U/S interpreted by me (1pt. min.). @ -None done What testing was considered but not performed or refused? (CT, X-rays, U/S, labs)? Why? @ -Laboratory studies, CT and x-ray were all offered however the daughters refused stating that they want no further care for the mother. They would like hospice to be consulted What meds were considered but not given or refused? Why? @ -None Did you discuss the management of the patient with other professionals (professionals i.e. , PA, DATA COLLECTION SPECIALIST, lab, RT, psych nurse, social secretary, kiln firer, teacher, commissioned police officer, major case detective)? Give summary @ -We spoke with [facility]care [facility] who stated that the patient could be transferred back and receive hospice consult there. I also spoke with the hospice nurse was unable to evaluate the patient until the morning. I also spoke with Dr. Rivas who agreed to admit the patient for hospice consult Was smoking cessation discussed for >3mins.? @ -No Was critical care preformed (if so, how long)? @ -No Were there social determinants of health that impacted care today? How? (Homelessness, low income, unemployed, alcoholism, drug addiction, transportation, low edu. Level, literacy, decrease access to med. care, [facility], rehab)? @ -No Was there de-escalation of care discussed even if they declined (Discuss DNR or withdrawal of care, Hospice)? DNR status @ -yes, family would like hospice What co-morbidities impacted this encounter? (DM, HTN, Smoking, COPD, CAD, Cancer, CVA, ARF, Chemo, Hep., AIDS, mental health diagnosis, sleep apnea, morbid obesity)? @ -Metastatic breast cancer, distal femur fracture Was patient admitted / discharged? Hospital course, mention meds given and route, prescriptions, significant lab abnormalities, going to OR and other pertinent info. @ -Upon arrival patient is placed into room 4. Thorough history and physical exam was performed. Patient cannot provide much history. Due to reported new altered mental status and bradycardia did recommend laboratory studies and imaging. The patients daughters are at bedside. They state that the patient does have a terminal condition. At this time they are requesting that the patient remained comfortable. They do not want any testing. They're all to Alex is to take the patient home. We do attempt to call hospice to get a consult however they state that they're unavailable until the morning. Family d oes request [facility] hospice. I did discuss certain options. They want to pursue overnight observation with case management and hospice consult in the morning. I did call and speak with Dr. Rivas and was agreeable to this Undiagnosed new problem with uncertain prognosis? @ -Yes Drug Therapy requiring intensive monitoring for toxicity (Heparin, Nitro, Insulin, Cardizem)? @ -No Were any procedures done? @ -No Diagnosis/symptom? @ -Acute encephalopathy, acute bradycardia, history of breast cancer with metastasis Acute, or Chronic, or Acute on Chronic? @ -Acute Uncomplicated (without systemic symptoms) or Complicated (systemic symptoms)? @ -Complicated Side effects of treatment? @ -No Exacerbation, Progression, or Severe Exacerbation? @ -No Poses a threat to life or bodily function? How? (Chest pain, USA, DC, pneumonia, PE, COPD, DKA, ARF, appy, cholecystitis, CVA, Diverticulitis, Homicidal, Suicidal, threat to staff... and all critical care pts) @ -Yes, patient may succumb to her current ailments Disposition Clinical Impression: Weakness, Breast cancer metastasized to liver, Femoral distal fracture, Bradycardia Disposition: ADMITTED IP TO THIS [facility] Condition: Stable Is patient prescribed a controlled substance at d/c from ED?: No Time of Disposition: 23:44 Decision to Admit Reason: Admit from EC Decision Date: 07/24/23 Decision Time: 23:44
--- NOTE | 2023-07-25 03:35 | P.HPIM ---
History of Present Illness H&P Date: 07/25/23 Patient is a 88 yo F was sent in from [facility] for increasing confusion. History was obtained from the daughter Stephanie via telephone and from the ED provider as the patient was very confused at the time of interview. The patient was recently diagnosed with metastatic breast cancer March 2023 at [facility] (following Dr. Rosen), decided to forego all treatment, subsequently had a fall at home 3-4 weeks ago with a left femoral fracture, admitted at [facility] where operative repair could not be performed due to an arrhythmia, and patient was discharged to [facility] for rehab. She was noted to be "not acting like herself" by the SNF staff and was sent to [facility]. The patient is normally "very alert and with it" at baseline as per daughter. She had been more confused over the past 1-2 days and was also noted to be bradycardic. No other complaints were reported. Patient was very confused at the time of interview and did not know that she was at a hospital and could not report why she was here. She denied any physical active complaints at the time of interview. EKG in emergency room revealed sinus bradycardia at 47 bpm with left axis deviation and intraventricular conduction delay as reviewed by me. The family had requested no further testing or interventions including imaging or lab workup be performed. The family requested that the patient was a DO NOT RESUSCITATE be evaluated for home hospice as she does not wish to return to [facility]. ED documentation reviewed and case discussed with ED provider. Review of systems: Pertinent positives and negatives as discussed in HPI, a complete review of systems was performed and all other systems are negative. Physical examination: Vital signs reviewed General: non toxic, no distress, appears at stated age, normal weight Derm: no unusual rashes/lesions, warm Head: atraumatic, normocephalic, symmetric Eyes: EOMI, no lid lag, anicteric sclera, pupils equal round reactive to light ENT: Nose and ears atraumatic Neck: No cervical lymphadenopathy, trachea midline, supple Mouth: no lip lesion, mucus membranes moist Cardiovascular: S1S2 reg, no murmur, positive dorsalis pedis pulse bilateral, no edema Lungs: CTA bilateral, no rhonchi, no rales, no accessory muscle use Abdominal: soft, nontender to palpation, no guarding Ext: muscle strength 5 out of 5 in all bilateral upper extremities grossly, strength to out of 5 in bilateral lower extremities with left lower extremity brace in place, no gross muscle atrophy, no contractures, Neuro: CN II-XI grossly intact, no gross focal neuro deficits Psych: Oriented only to self, not oriented to place or time Assessment: Altered mental status, unknown etiology Metastatic breast cancer, foregoing treatment Left femoral fracture Sinus bradycardia Imaging: EKG in emergency room revealed sinus bradycardia at 47 bpm with left axis deviation and intraventricular conduction delay as reviewed by me. Data Review: No laboratory workup performed Plan: Cardiac monitoring [facility] consult Family does not wish for patient to undergo any further testing or interventions including laboratory or imaging DVT prophylaxis: Family refusing The patient is admitted with an anticipated less than 2 midnight stay for evaluation of altered mental status CODE STATUS: No Code Discussed with: Patient, daughter Anticipated discharge place: Home Past Medical History Past Medical History: Cancer, COPD, Hyperlipidemia, Hypertension, Thyroid Disorder Additional Past Medical History / Comment(s): Oxygen at night, breast cancer metastasized History of Any Multi-Drug Resistant Organisms: None Reported Past Surgical History: Adenoidectomy, Appendectomy, Breast Surgery, Cholecystectomy, Hysterectomy, Orthopedic Surgery, Tonsillectomy Additional Past Surgical History / Comment(s): BILAT CARPEL tunnel, hemorroidectomy, LT BREAST LUMPECTOMY, COLONOSCOPY, BILAT CATARACTS REMOVED WITH LENS IMPLANTS Past Anesthesia/Blood Transfusion Reactions: No Reported Reaction Past Psychological History: No Psychological Hx Reported Smoking Status: Former smoker Past Alcohol Use History: None Reported Past Drug Use History: None Reported - Past Family History Brother(s) Family Medical History: Cancer Mother Family Medical History: Cancer Daughter(s) Family Medical History: Cancer Medications and Allergies Home Medications Medication Instructions Recorded Confirmed Type Lovastatin [Mevacor] 20 mg PO DAILY 07/18/17 07/24/23 History Gabapentin [Neurontin] 100 mg PO TID@0900,1300,2100 02/27/21 07/24/23 History Albuterol Sulfate [Ventolin HFA] 2 puff INHALATION RT-Q6H PRN 07/24/23 07/24/23 History Aspirin EC [Ecotrin Low Dose] 81 mg PO DAILY 07/24/23 07/24/23 History Diltiazem Cd [Cardizem CD] 180 mg PO DAILY 07/24/23 07/24/23 History Ipratropium-Albuterol Nebulize 3 ml INHALATION RT-BID 07/24/23 07/24/23 History [Duoneb 0.5 mg-3 mg/3 ml Soln] Ipratropium-Albuterol Nebulize 3 ml INHALATION RT-Q4H PRN 07/24/23 07/24/23 History [Duoneb 0.5 mg-3 mg/3 ml Soln] Lactose-Reduced Food [Ensure Plus] 1 can PO BID@0900,1700 07/24/23 07/24/23 History Levothyroxine Sodium [Synthroid] 75 mcg PO DAILY@0600 07/24/23 07/24/23 History Metoprolol Tartrate [Lopressor] 100 mg PO BID 07/24/23 07/24/23 History Na Phos,M-B/Na Phos,Di-Ba [Fleet 133 ml RECTAL ONCE 07/24/23 07/24/23 History Adult] Sennosides-Docusate Sodium 1 tab PO Q12H PRN 07/24/23 07/24/23 History [Senokot-S] oxyCODONE HCL [oxyCODONE HCL (IR)] 5 mg PO Q6H PRN 07/24/23 07/24/23 History Allergies Allergy/AdvReac Type Severity Reaction Status Date / Time No Known Allergies Allergy Verified 07/24/23 22:33 Physical Exam Vitals: Vital Signs Temp Pulse Resp BP Pulse Ox 07/25/23 01:49 53 L 16 144/55 97 07/24/23 22:15 97.6 F 55 L 18 156/64 95 Intake and Output 07/24/23 07/24/23 07/25/23 14:59 22:59 06:59 Other: Weight 58.967 kg
[2023-07-25] MEDS ORDERED: SENNOSIDES-DOCUSATE SODIUM 1 EACH TAB PO PRN (09:02)
[2023-07-25] MEDS ORDERED: ALBUTEROL NEBULIZED 2.5 MG/3 ML INHALATION PRN (09:02)
[2023-07-25] MEDS ORDERED: IPRATROPIUM-ALBUTEROL 3 ML NEB INHALATION PRN (09:02)
[2023-07-25] MEDS ORDERED: NON FORMULARY DRUG (Lactose-Reduced Food [Ensure Plus] 237 ML Ml) PO SCH (09:03)
[2023-07-25] MEDS: LEVOTHYROXINE 75 MCG TAB PO SCH (09:17)
[2023-07-25] MEDS: METOPROLOL TARTRATE 50 MG TAB PO SCH ×2 (09:17→22:17)
[2023-07-25] MEDS: GABAPENTIN 100 MG CAP PO SCH ×3 (09:17→22:17)
[2023-07-25] MEDS: ASPIRIN 81 MG PO SCH (09:17)
[2023-07-25] MEDS: ATORVASTATIN 10 MG TAB PO SCH (09:17)
[2023-07-25] MEDS: DILTIAZEM CD 180 MG CAP.ER.24H PO SCH (09:18)
[2023-07-25] MEDS: MORPHINE SULFATE 4 MG/ML SYRINGE IVP PRN (17:29)
--- NOTE | 2023-07-25 18:34 | P.PN ---
Subjective Progress Note Date: 07/25/23 Hospital course: Patient is an 80-year-old female with a past medical history of metastatic breast cancer with recent femur fracture. She presented to the emergency department overnight from [facility] secondary to increasing confusion. Family requesting for assistance with arrangements to have home hospice set up. States they will need a hospital bed and some supplies but they would like to take their mother home on hospice. Family very adamant they do not want [facility] hospice, only [facility] at this time. Physical exam: Vital signs reviewed and stable. General: Frail and emaciated Derm: Skin warm and dry, normal coloration for ethnicity. Head: Atraumatic, normocephalic and symmetric. Eyes: EOMs intact, no lid lag, and anicteric sclera Mouth: no lip lesions, mucus membranes dry Cardiovascular: regular rate and rhythm with normal S1S2, systolic murmur, positive posterior tibial pulses bilaterally, and cap refill < 2 seconds. Lungs: Respirations even, regular, and unlabored on room air. Lungs CTA bilaterally, no rhonchi, no rales, no wheezing, and no accessory muscle usage. Abdominal: soft, nontender to palpation, no guarding, no appreciable organomegaly Ext: ROM intact. No gross muscle atrophy, no edema, no contractures Neuro/psych: Patient is somnolent, not verbally responding to questions will occasionally mumble a word or 2. Wiill withdraw from pain. Assessment and Plan of Care: Metabolic encephalopathy multifactorial resulting from multiple comorbidities Metastatic breast cancer, patient made the decision to forego treatment 03/2023 Left femoral fracture Hypothyroidism Hypertension COPD oxygen dependent nightly -Patient admitted to observation to arrange for assistance with obtaining Hospital supplies so family can take patient home on hospice. -Hospice was consulted -Case management consulted for assistance with obtaining supplies and setting up placement in hospice. -Home medications reordered per family's request including levothyroxine 75 g daily, metoprolol 100 mg twice daily, Neurontin 900 mg 3 times daily, Cardizem 180 mg daily, atorvastatin 10 mg daily, and aspirin 81 mg daily. -Patient to be provided with symptomatic care and pain management pending discharge home on hospice. -Order placed for regular diet, comfort feeds -Patient to be given morphine 4 mg IVP every 3 hours as needed for pain. CODE STATUS: DO NOT RESUSCITATE/DO NOT INTUBATE Discussed with: Patient's 2 daughters at bedside Anticipated discharge date: Likely within the next [address]: Home on hospice Patient was seen independently by Nurse Pracitioner. This document was prepared using [employer] dictation software. Please allow for errors in administrative project coordinator, while rare they do occur. Jesus Taveras NP rendered care for this patient independently, reviewed the findings and plan as documented in the note above. I did not physically speak with or examine the patient on this date. Objective - Vital Signs Vital signs: Vital Signs Temp 98.2 F 07/25/23 07:36 Pulse 50 L 07/25/23 07:36 Resp 18 07/25/23 07:36 BP 156/55 07/25/23 07:36 Pulse Ox 97 07/25/23 07:36 FiO2 Intake & Output 07/24/23 07/25/23 07/25/23 18:59 06:59 18:59 Weight 58.967 kg
[2023-07-25 19:50] VITALS: BP 138/57; RESP 18; TEMP 98.2
[2023-07-25] MEDS: IPRATROPIUM-ALBUTEROL 3 ML NEB INHALATION SCH (20:54)
[2023-07-26] MEDS: MORPHINE SULFATE 4 MG/ML SYRINGE IVP PRN ×4 (00:10→18:37)
[2023-07-26] MEDS: LEVOTHYROXINE 75 MCG TAB PO SCH (05:51)
[2023-07-26] MEDS: IPRATROPIUM-ALBUTEROL 3 ML NEB INHALATION SCH (10:05)
[2023-07-26] MEDS: DILTIAZEM CD 180 MG CAP.ER.24H PO SCH (10:43)
[2023-07-26] MEDS: ATORVASTATIN 10 MG TAB PO SCH (10:43)
[2023-07-26] MEDS: METOPROLOL TARTRATE 50 MG TAB PO SCH (10:43)
[2023-07-26] MEDS: ASPIRIN 81 MG PO SCH (10:43)
[2023-07-26] MEDS: GABAPENTIN 100 MG CAP PO SCH ×2 (10:43→17:15)
--- NOTE | 2023-07-26 13:05 | P.DS ---
Providers Date of admission: 07/24/23 23:45 Expected date of discharge: 07/26/23 Attending physician: Frida Rivas MD Primary care physician: Vincenzo Gómez MD Hospital Course: Discharge Diagnosis: Metastatic breast cancer Left distal femoral fracture Bradycardia Altered mentation Pain secondary to malignancy Hospital Course: Patient is a 88-year-old female with a history of breast cancer with metastatic disease and recent distal femoral fracture who presented to the ER from [facility] due to altered mentation and bradycardia. Upon arrival to the ER the patient and family did not want any further testing or medical intervention due to her known terminal illness of breast cancer area they were asking to be discharged home with hospice, unfortunately no hospice nurse available at that time and was subsequently admitted to the hospital. They have been seen by [facility], arrangements made for the patient to go home with hospice and she was subsequently determined stable for discharge. Patient was given a prescription for Roxanol at home as well as her oxycodone as needed for pain. Opiate start teaching form was unable to be completed due to patient's mentation. She'll be discharged home with [facility]. Patient seen and examined at bedside. She does complain of pain. Her family feels as though it is more that her heart is hurting due to her current condition and it is not physiologic pain. They do state that her leg does hurt her intermittently but states that they feel it is okay at this point. Vital signs reviewed and stable. General: nontoxic, no distress, appears at stated age Cardiovascular: S1S2 reg, no murmur, positive posterior tibial pulse bilateral, Lungs: Decreased breath sounds bilateral, no rhonchi, no rales , no accessory muscle use Abdominal: soft, nontender to palpation, no guarding, no appreciable organomegaly Ext: no gross muscle atrophy, no edema b/l lower extremities, no contractures Neuro: CN II-XI grossly intact, no focal neuro deficits Psych: Alert, oriented, appropriate affect A total of 25 minutes of time were spent preparing this complex discharge summary. Patient was discharged on 07/26/23. This dictation was prepared using [employer] voice recognition software. Though every attempt is made to correct errors during dictation some may still exist. Patient Condition at Discharge: Stable Plan - Discharge Summary Discharge Rx Participant: No New Discharge Prescriptions: New LORazepam [Ativan] 0.5 mg PO QID PRN #16 tab PRN Reason: Anxiety RX: MORPHINE ORAL HERMES CONC 20mg/mL [Roxanol Oral Soln Conc 20MG/ML] 10 mg PO Q4H PRN #120 ml PRN Reason: Pain Continue RX: Lovastatin [Mevacor] 20 mg PO DAILY RX: Gabapentin [Neurontin] 100 mg PO TID@0900,1300,2100 RX: Sennosides-Docusate Sodium [Senokot-S] 1 tab PO Q12H PRN PRN Reason: Constipation RX: Na Phos,M-B/Na Phos,Di-Ba [Fleet Adult] 133 ml RECTAL ONCE RX: Ipratropium-Albuterol Nebulize [Duoneb 0.5 mg-3 mg/3 ml Soln] 3 ml INHALATION RT-BID RX: Levothyroxine Sodium [Synthroid] 75 mcg PO DAILY@0600 RX: Diltiazem Cd [Cardizem CD] 180 mg PO DAILY RX: Aspirin EC [Ecotrin Low Dose] 81 mg PO DAILY RX: Albuterol Sulfate [Ventolin HFA] 2 puff INHALATION RT-Q6H PRN PRN Reason: Shortness Of Breath RX: Ipratropium-Albuterol Nebulize [Duoneb 0.5 mg-3 mg/3 ml Soln] 3 ml INHALATION RT-Q4H PRN PRN Reason: Shortness Of Breath Or Wheezing RX: Metoprolol Tartrate [Lopressor] 100 mg PO BID RX: oxyCODONE HCL [oxyCODONE HCL (IR)] 5 mg PO Q6H PRN #30 cap PRN Reason: Moderate To Severe Pain (4-10) Discontinued Lactose-Reduced Food [Ensure Plus] 1 can PO BID@0900,1700 Discharge Medication List RX: Lovastatin [Mevacor] 20 mg PO DAILY 07/18/17 [History] RX: Gabapentin [Neurontin] 100 mg PO TID@0900,1300,2100 02/27/21 [History] RX: Albuterol Sulfate [Ventolin HFA] 2 puff INHALATION RT-Q6H PRN 07/24/23 [History] RX: Aspirin EC [Ecotrin Low Dose] 81 mg PO DAILY 07/24/23 [History] RX: Diltiazem Cd [Cardizem CD] 180 mg PO DAILY 07/24/23 [History] RX: Ipratropium-Albuterol Nebulize [Duoneb 0.5 mg-3 mg/3 ml Soln] 3 ml INHALATION RT-BID 07/24/23 [History] RX: Ipratropium-Albuterol Nebulize [Duoneb 0.5 mg-3 mg/3 ml Soln] 3 ml INHALATION RT-Q4H PRN 07/24/23 [History] RX: Levothyroxine Sodium [Synthroid] 75 mcg PO DAILY@0600 07/24/23 [History] RX: Metoprolol Tartrate [Lopressor] 100 mg PO BID 07/24/23 [History] RX: Na Phos,M-B/Na Phos,Di-Ba [Fleet Adult] 133 ml RECTAL ONCE 07/24/23 [History] RX: Sennosides-Docusate Sodium [Senokot-S] 1 tab PO Q12H PRN 07/24/23 [History] LORazepam [Ativan] 0.5 mg PO QID PRN #16 tab 07/26/23 [Rx] RX: MORPHINE ORAL HERMES CONC 20mg/mL [Roxanol Oral Soln Conc 20MG/ML] 10 mg PO Q4H PRN #120 ml 07/26/23 [Rx] RX: oxyCODONE HCL [oxyCODONE HCL (IR)] 5 mg PO Q6H PRN #30 cap 07/26/23 [Rx] Follow up Appointment(s)/Referral(s): [facility] [REFERRING] - As Needed Vincenzo Gómez MD [Primary Care Provider] - 1-2 days Discharge Disposition: HOME WITH HOSPICE
[2023-07-26 13:41] VITALS: PULSE 73
== END 2023-07-26 19:00 | disposition hospice, home (50) ==
LOC: EC 22:12 → 5NMEDONC 23:45 → 4SSUR 07-25 15:02
PROVIDERS: ADMIT Internal Medicine; ATTEND Internal Medicine
DX: G93.41 Metabolic encephalopathy (principal); R53.1 Weakness; R00.1 Bradycardia, unspecified; C50.919 Malignant neoplasm of unspecified site of unspecified female breast; C78.7 Secondary malignant neoplasm of liver and intrahepatic bile duct; S72.402D Unspecified fracture of lower end of left femur, subsequent encounter for closed fracture with routine healing; W19.XXXD Unspecified fall, subsequent encounter; G89.3 Neoplasm related pain (acute) (chronic); J44.9 Chronic obstructive pulmonary disease, unspecified; E78.5 Hyperlipidemia, unspecified; I10 Essential (primary) hypertension; E03.9 Hypothyroidism, unspecified; Z99.81 Dependence on supplemental oxygen; Z87.891 Personal history of nicotine dependence; Z66 Do not resuscitate; Z79.899 Other long term (current) drug therapy; Z79.82 Long term (current) use of aspirin; Z79.890 Hormone replacement therapy
CPT/HCPCS: 96376; 96374; 99285; 94640; 94760; 93005; G0378 ×4; J2270 ×2